=== PATIENT | female | born 1980 | race Hispanic/Latino ===

== ENCOUNTER 2022-07-07 10:17 | Inpatient (IN) | payer OTHER ==
--- OUTSIDE RECORDS SUMMARY | 2022-07-07 10:21 | XMS REPORT | Continuity of Care Document ---
:[address] [facility] t Address [address] [place] [address] Care Team Providers Name Role Phone Sharpless Primary Care Physician Unavailable Vinicio Barger DO Attending Clinician Emir Cordon Attending Clinician Rylie Bunn DO Attending Clinician [phone] Dionicio Cardoza RN Attending Clinician Unavailable Lab, Adc Fam Pob I Attending Clinician Unavailable VALENTINA CAMACHO Attending Clinician Unavailable HIEU RAMIRES Attending Clinician Unavailable EMIR CORDON Admitting Clinician Unavailable HIEU RAMIRES Admitting Clinician Unavailable Payers Payer Name Policy Type Policy Number Effective Date Expiration Date Carrie [employer] [id number] 2019 00:00:00 Problems Condition Condition Condition Status Onset Resolution Last Treating Co mments Source Name Details Category Date Date Treatment Clinician Date Cerebrovas Cerebrovas Disease Active M ethodi cular cular 2-25 st accident accident 00:00: Hospit a (CVA), (CVA), 00 l unspecifie unspecifie d d mechanism mechanism Hemianesth Hemianesth Disease Active [facility] Coagulopat Coagulopat Disease Active [facility] Cerebral C[facility]bral [facility] sinus sinus 00:00: Medical thrombosis thrombosis 00 Ce nter PTSD PTSD Disease Active [facility] (post-trau (post-trau 7-18 [facility]adis kes matic matic 00:00: Medical stress stress 00 Center disorder) disorder) Migraine Migraine Disease [facility] aura aura [facility] Center Allergies, Adverse Reactions, Alerts Allergy Allergy Status Severity Reaction(s) Onset Inactive Treating Comm ents Source Name Type Date Date Clinician Penicill Propensi Active GI Method i in G ty to Intolerance 12-02 st adverse 00:00: Hospita reaction 00 l s to drug Ciprofib Propensi Active GI Method i rate ty to Intolerance 12-02 st adverse 00:00: Hospita reaction 00 l s to drug Latex Propensi Active Rash Methodi ty to 729 st adverse 00:00: Hospita reaction 00 l s to drug Avocado Propensi Active Anaphylaxis [facility] (L[facility] ty to 7[facility]18 [facility] [place]) adverse 00:00: Medical reaction 00 [place] Ciproflo Propensi Active Nausea And [facility] xacin ty to Vomiting 7-18 [facility] adverse 00:00: Medical reaction 00 Center s Latex, Propensi Active Hives [facility] Natural ty to 7-18 [facility] Rubber adverse 00:00: Medical reaction 00 [place] Penicill Propensi Active Nausea And [facility] ins ty to Vomiting 7-18 [facility] adverse 00:00: Medical reaction 00 [place] NO KNOWN Drug Active [facility]ERGIE Class [facility] Social History Social Habit Start Date Stop Date Quantity Comments Source Alcohol intake 2016-12-02 2016-12-02 Current [facility] 00:[facility]:00 00:00:00 non-drinker of Hospital alcohol (finding) Cigarette 2016-11-21 2016-11-[address] [facility] pack-years 00:00:00 00:00:00 [facility] Cigarettes smoked 2016-11-21 2016-11-[address] [facility] current (pack per 00:00:00 00:00:00 Medical Center day) - Reported History of tobacco 2011-11-22 [facility] use [facility]00 [facility] Sex Assigned At [birth year] [facility] 00:[facility]00 [facility]:00 Hospital Smoking Status Start Date Stop Date Source Never smoked tobacco [facility] Former smoker 2016-11-21 00:00:00 2016-11-21 00:00:00 [facility] Medications This patient has no known medications. Vital Signs Vital Name Observation Time Observation Value Comments Source Systolic blood 2022-07-03 13:27:53 107 mm[Hg] [facility] pressure Diastolic blood 2022-07-03 13:27:53 69 mm[Hg] [facility] pressure Heart rate 2022-07-03 13:27:53 66 /min [facility] Body temperature 2022-07-03 13:27:53 36.67 Josefa [facility] Respiratory rate 2022-07-03 13:27:53 18 /min [facility] Oxygen saturation in 2022-07-03 13:27:53 100 /min [facility] Arterial blood by Pulse oximetry Body height 2022-07-02 03:55:[address] [facility] Body weight 2022-07-02 03:55:[address] [facility] BMI 2022-07-02 03:55:00 21.43 kg/m2 [facility] Procedures Procedure Date / Time Performing Clinician Source Performed BASIC METABOLIC PANEL 2022-07-03 10:38:00 [facility] PROTHROMBIN TIME WITH INR 2022-07-03 10:38:00 [facility] ESTIMATED GFR 2022-07-03 10:38:00 [facility] MRI STROKE BRAIN WO 2022-07-02 11:30:00 [facility] Tavia Armstrong [facility] CONTRAST Zoe [id number] TOTAL 2022-07-02 10:29:[facility] Zoe TROPONIN T 2022-07-02 10:29:00 [facility] HEMOGLOB[facility] A1C 2022-07-02 10:29:00 [facility] LIPID PANEL 2022-07-02 10:29:00 [facility] Zoe HOMOCYSTINE, PLASMA 2022-07-02 10:29:00 [facility] Zoe FOLATE LEVEL 2022-07-02 10:29:00 [facility] Zoe VITAMIN B12 LEVEL 2022-07-02 10:29:00 [facility] Zoe THYROID STIMULATING 2022-07-02 10:29:00 [facility] HORMONE Zoe T4, FREE 2022-07-02 10:29:00 [facility] Zoe SEDIMENTATION RATE 2022-07-02 10:29:00 [facility] Zoe C-REACTIVE PROTEIN 2022-07-02 10:29:00 [facility] Zoe HIV 1/2 ANTIGEN/ANTIBODY, 2022-07-02 10:29:00 [facility] FOURTH GENERATION, WITH Zoe REFLEXES SYPHILIS TREPONEMA SCREEN 2022-07-02 10:29:00 [facility] WITH RPR CONFIRMATION Zoe (REVERSE ALGORITHM) URINE CULTURE 2022-07-02 07:15:[address] [facility] URINE DRUGS OF ABUSE 2022-07-02 07:15:00 [facility] SCREEN Zoe URINALYSIS SCREEN AND 2022-07-02 07:15:00 [facility] MICROSCOPY, WITH REFLEX Zoe TO CULTURE TROPONIN T 2022-07-02 06:23:00 [facility] Kaelyn COVID-19 QUALITATIVE 2022-07-02 04:35:00 [facility] ANGIOGRAM NECK W WO 2022-07-02 04:04:28 Vinicio Barger [facility] CONTRAST CT ANGIOGRAM HEAD W WO 2022-07-02 04:04:14 Vinicio Barger [facility] CONTRAST ECG 12-LEAD 2022-07-02 03:56:24 Vinicio Barger spital POC GLUCOSE 2022-07-02 03:54:00 [facility] WITH PLATELET AND 2022-07-02 03:46:00 Vinicio Barger [facility] DIFFERENTIAL PARTIAL THROMBOPLASTIN 2022-07-02 03:46:00 Vinicio Barger [facility] TIME (PTT) PROTHROMBIN TIME WITH INR 2022-07-02 03:46:00 Vinicio Barger [facility] COMPREHENSIVE METABOLIC 2022-07-02 03:46:00 Vinicio Barger [facility] PANEL TROPONIN T 2022-07-02 03:46:00 [facility] HCG QUALITATIVE, SERUM 2022-07-02 03:46:00 Vinicio Barger [facility] SCREEN ESTIMATED GFR 2022-07-02 03:46[facility]00 [facility]OKE BRAIN WO 2022-07-02 03:44:28 Vinicio Barger [facility] CONTRAST ECG ED PRELIMINARY 2022-07-02 03:37:37 Vinicio Barger [facility] INTERPRETATION Plan of Care Planned Activity Planned Date Details Comments Source Future Scheduled 2022-07-06 COVID-19 VACCINE [facility] Test 08:22:30 (#1) [code = COVID-19 VACCINE (#1)] Future Scheduled 2022-07-06 Hepatitis C [facility] Test 08:22:30 screening (procedure) [code = 821828973] Future Scheduled 2022-07-06 Screening for [facility] Test 08:22:30 malignant neoplasm of cervix (procedure) [code = 216192781] Future Scheduled 2022-07-06 BREAST CANCER [facility] Test 08:22:30 SCREENING [code = BREAST CANCER SCREENING] Future Scheduled 2022-07-[address] [facility] Test 08:22:30 [code = INFLUENZA VACCINE] Encounters Start End Encounter Admission Attending Care Care Encounter Source Date/Time Date/Time Type Type Clinicians Facility Department ID 2022-07-01 2022-07-03 [facility] Vinicio Barger [id number] Methodi 21:36:00 11:54:00 Encounter Emir Cordon Tamir [id number] Rylie Bunn 3.430.2.7 Hospita .[id number] l .8 2022-07-01 2022-07-03 Inpatient JOEY [facility] [id number] [place] 00:00:00 00:00:[address] [facility] 2022-07-01 2022-07-01 Travel 1.2.840.1 [id number] Methodi 00:00:00 00:00:[address] 3.430.2.7 0.2.7.3.698 Ho spita .3.730277 084.8 l .8 2019-10-26 2019-10-26 Telephone GILDA Cardoza [id number] [id number] 2025 00:00:00 00:00:00 Dionicio MOSQUERA 350.1.13.10 [facility] 4.2.7.2.686 [id number] 2019-10-24 2019-10-24 Laboratory Lab, [facility] [id number] 09:03:27 09:23:27 Only Fam Pob I Health 350.1.13.10 [place] 4.2.7.2.686 Professio [id number] [address]al [address] 2019-10-24 2019-10-24 Outpatient Megan CAAMCHO [facility] [id number] [facility] 08:40:00 08:40:00 VALENTINA [facility] Results Test Description Test Time Test Comments Results Result Comments Source ECG 12 lead 2022-07-02 20:10:46 Test Item Value Reference Range Interpretation Comme nts Ventricular rate (test code = 253) 90 Atrial rate (test code = 255) 90 ME interval (test code = 266) 134 QRSD interval (test code = 260) 68 QT interval (test code = 264) 348 QTC interval (test code = 265) 425 P axis 1 (test code = 267) 23 QRS axis 1 (test code = 268) 12 T wave axis (test code = 270) 23 EKG impression (test code = 273) Normal sinus rhythm-Normal ECG-No previous ECGs available- [facility] [id number] 08:39:00 Test Item Value Reference Range Interpretation Comments Urine culture (test SEE COMMENT Bacteriu darío screen code = 7000375) negative. [facility] [id number] 03:59:00 Test Item Value Reference Range Interpretation Comments POC glucose (test 99 mg/dL 65-99 Field Representative/Health Education N romelia: code = 95420-9) Jamal Schneider MiniDevice ID: [id number] [facility] [Presence] in Respiratory specimen by LORRAINE with probe [id number] 01:30:54 Test Item Value Reference Range Interpretation Comments SARS-CoV-2 (COVID-19) RNA Not detected [Presence] in Respiratory specimen by LORRAINE with probe detection (test code = 54627-3) Whether patient is employed in a Unknown healthcare setting (test code = 02090-1) Whether the patient has symptoms Unknown related to condition of interest (test code = 34397-3) Whether the patient was Unknown hospitalized for condition of interest (test code = 34346-8) Whether the patient was admitted Unknown to intensive care unit (ICU) for condition of interest (test code = 45423-6) Whether patient resides in a Unknown congregate care setting (test code = 49875-1) status (test code = Unknown 74479-7) Date and time of symptom onset Unknown (test code = 97247-7) [facility] LEIDEN PCR (THROMBOTIC RISK)2016-11-28 17:27:00 Test Item Value Reference Range Interpretation Comments FACTOR V LEIDEN Negative for the R506Q (ALBARO) (test code = (Factor V Leiden) 718) mutation [id number] Charla Souza MD (BEWILBER) (test code = (electronic signature) 3885) This test is a genotyping assay which evaluates the DNA sequence corresponding to Codon 506 of the Factor V Gene. A region of the Factor V Gene is amplified by polymerase chain reaction followed by fluorescent monitoring of a specific pair of hybridized probes. Since genetic variation and other factors can affect the accuracy of direct mutation testing, these results should be interpreted in light ofclinical and familial data.This test was developed and [facility], Section of Molecular Pathology. It has not been cleared or approved by the U.S. Food and Drug Administration (FDA), since FDA approval is not requ ired for clinical use of the test. Validation was done as required by the Clinical Laboratory Improvement Amendments of 1988.PROTHROMBIN GENE MUTATION 2016-11-28 17:24:00 Test Item Value Reference Range Interpretation Comments PROTHROMBIN/FACTOR Negative for the [id number] II (BEAKER) (test (Prothrombin/Factor II) code = 2163) mutation. [id number] Charla Souza MD 1(BEWILBER) (test code (electronic signature) = 2464) This test is a genotyping assay which evaluates the DNA sequence at position 03435 of the prothrombin (Factor II) gene. A region of the prothrombin (Factor II) gene is amplified by polymerase chain reaction followed by fluorescent monitoring of a specific pair of hybridized probes. Since genetic variation and other factors can affect the accuracy of direct mutation testing, these results should be interpreted in light of clinical and familial data.This test was developed and its performance characteristics determined by the [facility] Pathology Department, Section of Molecular Pathology. It has not been cleared or approved by the U.S. Food and Drug Administration (FDA), since FDA approval is not required for clinical use of the test. Validation was done as required by the Clinical Laboratory Improvement Amendments of 1988.DILUTE MICHELLE VIPER VENOM (DRVV)2016-11-27 18:14:00 Test Item Value Reference Range Interpretation Comments PROTIME (BEAKER) (test 14.2 seconds 11.7-14.7 code = 759) INR (BEAKER) (test code = 1.1 <=5.9 370) PARTIAL THROMBOPLASTIN 108.1 seconds 22.5-36.0 H TIME (BEAKER) (test code = 760) DRVV INTERPRETATION Normal DRVV Results (BEAKER) (test code = 2406) [id number] Charla Souza, ([facility]) (test code = (electronic 4432) signature) DRVV SCREEN RATIO 0.82 <1.20 (BEAKER) (test code = 2707) Effective 09/09/2013: Test Method ChangeDRVV Screen Ratio, DRVV 1/1 Screen Ratio, DRVV Confirm Ratio,DRVV Normalized Ratio Reference Range: <1.2Protime Reference Range ChangeNew: 11.7-14.7 Previous: 9.8-12.0PTT Reference Range ChangeNew: 22.5-36.0 Previous: 25.8-34.5HEXAGONAL [id number] 14:23:00 Test Item Value Reference Range Interpretation Comments HEXAGONAL PHOSPHOLIPID (BEAKER) Positive (test code = 1790) CARDIOLIPIN ANTIBODIES, IGG AND [id number] 02:07:00 Test Item Value Reference Range Interpretation Comments ANTICARDIOLIPIN IGG ANTIBODY (BEAKER) < GPL (test code = 712) ANTICARDIOLIPIN IGM ANTIBODY (BEAKER) 0.2 MPL (test code = 713) Anticardiolipin IgG Result Interpretation:NEG: <20 GPL; U/mlPOS: >/=20 GPL; U/mlAnticardiolipin IgM Result Interpretation:NEG: <20 MPL; U/mlPOS: >/=20 MPL; U/mlCBC W/PLT COUNT & AUTO [id number] 09:01:00 Test Item Value Reference Range Interpretation Comments WHITE BLOOD CELL COUNT (BEAKER) 11.4 K/ L 4.0-10.0 H (test code = 775) RED BLOOD CELL COUNT (BEAKER) 3.56 M/ L 4.00-5.00 L (test code = 761) HEMOGLOBIN (BEAKER) (test code = 11.2 GM/DL 12.0-15.0 L 410) HEMATOCRIT (BEAKER) (test code = 33.8 % 36.0-45.0 L 411) MEAN CORPUSCULAR VOLUME (BEAKER) 95.0 fL 82.0-99.0 (test code = 753) MEAN CORPUSCULAR HEMOGLOBIN 31.6 pg 27.0-33.0 (BEAKER) (test code = 751) MEAN CORPUSCULAR HEMOGLOBIN CONC 33.2 GM/DL 32.0-36.0 (BEAKER) (test code = 752) RED CELL DISTRIBUTION WIDTH 13.0 % 10.3-14.2 (BEAKER) (test code = 412) PLATELET COUNT (BEAKER) (test 230 K/CU MM 150-430 code = 756) MEAN PLATELET VOLUME (BEAKER) 8.6 fL 6.5-10.5 (test code = 754) NUCLEATED RED BLOOD CELLS 0 /100 WBC 0-0 (BEAKER) (test code = 413) NEUTROPHILS RELATIVE PERCENT 48 % (BEAKER) (test code = 429) LYMPHOCYTES RELATIVE PERCENT 45 % (BEAKER) (test code = 430) MONOCYTES RELATIVE PERCENT 5 % (BEAKER) (test code = 431) EOSINOPHILS RELATIVE PERCENT 1 % (BEAKER) (test code = 432) BASOPHILS RELATIVE PERCENT 1 % (BEAKER) (test code = 437) NEUTROPHILS ABSOLUTE COUNT 5.45 K/ L 1.80-8.00 (BEAKER) (test code = 670) LYMPHOCYTES ABSOLUTE COUNT 5.12 K/ L 1.48-4.50 H (BEAKER) (test code = 414) MONOCYTES ABSOLUTE COUNT (BEAKER) 0.61 K/ L 0.00-1.30 (test code = 415) EOSINOPHILS ABSOLUTE COUNT 0.12 K/ L 0.00-0.50 (BEAKER) (test code = 416) BASOPHILS ABSOLUTE COUNT (BEAKER) 0.11 K/ L 0.00-0.20 (test code = 417) 0.00(MANUAL DIFFERENTIAL)2016-11-23 09:01:00 Test Item Value Reference Range Interpretation Comments TOTAL COUNTED (BEAKER) (test code = 1351) WBC MORPHOLOGY (BEAKER) (test code = Normal 487) PLT MORPHOLOGY (BEAKER) (test code = Normal 486) RBC MORPHOLOGY (BEAKER) (test code = Normal 762) BASIC METABOLIC [id number] 06:04:00 Test Item Value Reference Range Interpretation Comments SODIUM (BEAKER) 140 meq/L 136-145 (test code = 381) POTASSIUM (BEAKER) 3.7 meq/L 3.5-5.1 (test code = 379) CHLORIDE (BEAKER) 108 meq/L 98-107 H (test code = 382) CO2 (BEAKER) (test 26 meq/L 22-29 code = 355) BLOOD UREA NITROGEN 9 mg/dL 7-21 (BEAKER) (test code = 354) CREATININE (BEAKER) 0.64 mg/dL 0.57-1.25 (test code = 358) GLUCOSE RANDOM 92 mg/dL 70-105 (BEAKER) (test code = 652) CALCIUM (BEAKER) 7.6 mg/dL 8.4-10.2 L (test code = 697) EGFR (BEAKER) (test 104 mL/min/1.73 ESTIM ATED GFR IS code = 1092) sq m NOT ACCURATE CREATININE CLEARANCE IN PREDICTING GLOMERULAR FILTRATION RATE . ESTIMATED GFR I S NOT APPLICABLE FOR DIALYSIS PATIEN TS. PROTHROMBIN [id number] 05:57:00 Test Item Value Reference Range Interpretation Comments PROTIME (BEAKER) (test code = 15.4 seconds 11.7-14.7 H 759) INR (BEAKER) (test code = 370) 1.2 <=5.9 RECOMMENDED COUMADIN/WARFARIN INR THERAPY RANGESSTANDARD DOSE: 2.0 - 3.0 Includes: PROPHYLAXIS for venous thrombosis, systemic embolization; TREATMENT for venous thrombosis and/or pulmonary embolus.HIGH RISK: Target INR is 2.5-3.5 for patients with mechanical heart valves.While on warfarin.PT/[id number] 23:25:00 Test Item Value Reference Range Interpretation Comments PROTIME (BEAKER) (test code = 15.0 seconds 11.7-14.7 H 759) INR (BEAKER) (test code = 370) 1.2 <=5.9 PARTIAL THROMBOPLASTIN TIME 68.7 seconds 22.5-36.0 H (BEAKER) (test code = 760) RECOMMENDED COUMADIN/WARFARIN INR THERAPY RANGESSTANDARD DOSE: 2.0 - 3.0 Includes: PROPHYLAXIS for venous thrombosis, systemic embolization; TREATMENT for venous thrombosis and/or pulmonary embolus.HIGH RISK: Target INR is 2.5-3.5 for patients with mechanical heart valves.PROTHROMBIN [id number] 22:37:00 Test Item Value Reference Range Interpretation Comments PROTIME (BEAKER) (test code = 15.0 seconds 11.7-14.7 H 759) INR (BEAKER) (test code = 370) 1.2 <=5.9 RECOMMENDED COUMADIN/WARFARIN INR THERAPY RANGESSTANDARD DOSE: 2.0 - 3.0 Includes: PROPHYLAXIS for venous thrombosis, systemic embolization; TREATMENT for venous thrombosis and/or pulmonary embolus.HIGH RISK: Target INR is 2.5-3.5 for patients with mechanical heart valves.PT/[id number] 17:25:00 Test Item Value Reference Range Interpretation Comments PROTIME (BEAKER) (test code = 15.1 seconds 11.7-14.7 H 759) INR (BEAKER) (test code = 370) 1.2 <=5.9 PARTIAL THROMBOPLASTIN TIME 75.8 seconds 22.5-36.0 H (BEAKER) (test code = 760) RECOMMENDED COUMADIN/WARFARIN INR THERAPY RANGESSTANDARD DOSE: 2.0 - 3.0 Includes: PROPHYLAXIS for venous thrombosis, systemic embolization; TREATMENT for venous thrombosis and/or pulmonary embolus.HIGH RISK: Target INR is 2.5-3.5 for patients with mechanical heart valves.PROTHROMBIN [id number] 12:27:00 Test Item Value Reference Range Interpretation Comments PROTIME (BEAKER) (test code = 15.2 seconds 11.7-14.7 H 759) INR (BEAKER) (test code = 370) 1.2 <=5.9 RECOMMENDED COUMADIN/WARFARIN INR THERAPY RANGESSTANDARD DOSE: 2.0 - 3.0 Includes: PROPHYLAXIS for venous thrombosis, systemic embolization; TREATMENT for venous thrombosis and/or pulmonary embolus.HIGH RISK: Target INR is 2.5-3.5 for patients with mechanical heart valves.PROTEIN C [id number] 11:52:00 Test Item Value Reference Range Interpretation Comments PROTEIN C ACTIVITY (BEAKER) (test code 87.0 % 70.0-130.0 = 582) Effective 09/09/2013: Reference Range Change-Adult onlyNew: 70.0-130.0 Previous: [id number] 10:53:00 Test Item Value Reference Range Interpretation Comments PARTIAL THROMBOPLASTIN TIME 97.8 seconds 22.5-36.0 H (BEAKER) (test code = 760) [id number] 10:51:00 Test Item Value Reference Range Interpretation Comments HOMOCYSTEINE (BEAKER) (test code = 4.9 umol/L 5.1-15.4 L 642) CBC W/PLT COUNT & AUTO [id number] 08:22:00 Test Item Value Reference Range Interpretation Comments WHITE BLOOD CELL COUNT (BEAKER) 13.6 K/ L 4.0-10.0 H (test code = 775) RED BLOOD CELL COUNT (BEAKER) 4.12 M/ L 4.00-5.00 (test code = 761) HEMOGLOBIN (BEAKER) (test code = 12.8 GM/DL 12.0-15.0 410) HEMATOCRIT (BEAKER) (test code = 38.9 % 36.0-45.0 411) MEAN CORPUSCULAR VOLUME (BEAKER) 94.4 fL 82.0-99.0 (test code = 753) MEAN CORPUSCULAR HEMOGLOBIN 31.1 pg 27.0-33.0 (BEAKER) (test code = 751) MEAN CORPUSCULAR HEMOGLOBIN CONC 33.0 GM/DL 32.0-36.0 (BEAKER) (test code = 752) RED CELL DISTRIBUTION WIDTH 11.3 % 10.3-14.2 (BEAKER) (test code = 412) PLATELET COUNT (BEAKER) (test 291 K/CU MM 150-430 code = 756) MEAN PLATELET VOLUME (BEAKER) 8.2 fL 6.5-10.5 (test code = 754) NUCLEATED RED BLOOD CELLS 0 /100 WBC 0-0 (BEAKER) (test code = 413) NEUTROPHILS RELATIVE PERCENT 85 % (BEAKER) (test code = 429) LYMPHOCYTES RELATIVE PERCENT 11 % (BEAKER) (test code = 430) MONOCYTES RELATIVE PERCENT 4 % (BEAKER) (test code = 431) EOSINOPHILS RELATIVE PERCENT 0 % (BEAKER) (test code = 432) BASOPHILS RELATIVE PERCENT 0 % (BEAKER) (test code = 437) NEUTROPHILS ABSOLUTE COUNT 11.50 K/ L 1.80-8.00 H (BEAKER) (test code = 670) LYMPHOCYTES ABSOLUTE COUNT 1.52 K/ L 1.48-4.50 (BEAKER) (test code = 414) MONOCYTES ABSOLUTE COUNT (BEAKER) 0.55 K/ L 0.00-1.30 (test code = 415) EOSINOPHILS ABSOLUTE COUNT 0.02 K/ L 0.00-0.50 (BEAKER) (test code = 416) BASOPHILS ABSOLUTE COUNT (BEAKER) 0.02 K/ L 0.00-0.20 (test code = 417) 0.000.510.000.000.000.000.000.000.00(MANUAL DIFFERENTIAL)2016-11-22 08:22:00 Test Item Value Reference Range Interpretation Comments TOTAL COUNTED (BEAKER) (test code = 1351) WBC MORPHOLOGY (BEAKER) (test code = Normal 487) PLT MORPHOLOGY (BEAKER) (test code = Normal 486) RBC MORPHOLOGY (BEAKER) (test code = Normal 762) [id number] 04:34:00 Test Item Value Reference Range Interpretation Comments POTASSIUM (BEAKER) (test code = 4.1 meq/L 3.5-5.1 379) FastingCheck Serum Potassium level 2 hours after oral potassium replacement completed or 30 min after intravenous potassium replacement.[id number] 04:34:00 Test Item Value Reference Range Interpretation Comments MAGNESIUM (BEAKER) (test code = 1.9 mg/dL 1.6-2.6 627) FastingCheck Serum Potassium level 2 hours after oral potassium replacement completed or 30 min after intravenous potassium replacement.BASIC METABOLIC [id number] 04:34:00 Test Item Value Reference Range Interpretation Comments SODIUM (BEAKER) 134 meq/L 136-145 L (test code = 381) POTASSIUM (BEAKER) 4.1 meq/L 3.5-5.1 (test code = 379) CHLORIDE (BEAKER) 103 meq/L 98-107 (test code = 382) CO2 (BEAKER) (test 22 meq/L 22-29 code = 355) BLOOD UREA NITROGEN 8 mg/dL 7-21 (BEAKER) (test code = 354) CREATININE (BEAKER) 0.72 mg/dL 0.57-1.25 (test code = 358) GLUCOSE RANDOM 142 mg/dL 70-105 H (BEAKER) (test code = 652) CALCIUM (BEAKER) 8.2 mg/dL 8.4-10.2 L (test code = 697) EGFR (BEAKER) (test 91 mL/min/1.73 ESTIMA NICHELLE GFR IS code = 1092) sq m NOT ACCURATE CREATININE CLEARANCE IN PREDICTING GLOMERULAR FILTRATION RATE . ESTIMATED GFR I S NOT APPLICABLE FOR DIALYSIS PATIEN TS. FastingCheck Serum Potassium level 2 hours after oral potassium replacement completed or 30 min after intravenous potassium replacement.LIPID PANEL 2016-11-22 04:34:00 Test Item Value Reference Range Interpretation Comments TRIGLYCERIDES (BEAKER) (test code = 106 mg/dL 540) CHOLESTEROL (BEAKER) (test code = 179 mg/dL 631) HDL CHOLESTEROL (BEAKER) (test code 41 mg/dL = 976) LDL CHOLESTEROL CALCULATED (BEAKER) 117 mg/dL (test code = 633) Triglyceride Reference Range: Low Risk <150 Borderline 150-199 High Risk 200- 499 Very High Risk >=500Cholesterol Reference Range: Low Risk <200 Borderline 200-239 High Risk >240HDL Cholesterol Reference Range: Low Risk >=60 High Risk <40LDL Cholesterol Reference Range: Optimal <100 Near Optimal 100-129 Borderline 130-159 High 160-189 Very High >=190 FastingCheck Serum Potassium level 2 hours after oral potassium replacement completed or 30 min after intravenous potassium replacement.[id number] 04:22:00 Test Item Value Reference Range Interpretation Comments PARTIAL THROMBOPLASTIN TIME 61.5 seconds 22.5-36.0 H (BEAKER) (test code = 760) [id number] 22:54:00 Test Item Value Reference Range Interpretation Comments PARTIAL THROMBOPLASTIN TIME 37.5 seconds 22.5-36.0 H (BEAKER) (test code = 760) SCREEN, [id number] 16:30:00 Test Item Value Reference Range Interpretation Comments TEST URINE (AKER) (test Negative code = 583) TROPONIN [id number] 15:41:00 Test Item Value Reference Range Interpretation Comments TROPONIN I (BEAKER) (test code = 397) < ng/mL 0.00-0.03 Effective 03/24/2014: Reference Range ChangeNew: 0.00-0.03 Previous 0.00- 0.15Troponin I (TnI) levelsmust be interpreted in the context of the presenting symptoms and the clinical findings. Elevated TnI levels indicate myocardial damage, but are not specific for ischemic heart disease. Elevated TnI levels are seen in patients with other cardiac conditions (including myocarditis and congestive heart failure), and slight TnI elevations occur in patients with other conditions, including sepsis, renal failure, acidosis, acute neurological disease, and persistent tachyarrhythmia.BASIC METABOLIC [id number] 15:36:00 Test Item Value Reference Range Interpretation Comments SODIUM (BEAKER) 136 meq/L 136-145 (test code = 381) POTASSIUM (BEAKER) 3.9 meq/L 3.5-5.1 Specimen slightly (test code = 379) hemolyzed CHLORIDE (BEAKER) 101 meq/L 98-107 (test code = 382) CO2 (BEAKER) (test 28 meq/L 22-29 code = 355) BLOOD UREA NITROGEN 9 mg/dL 7-21 (BEAKER) (test code = 354) CREATININE (BEAKER) 0.75 mg/dL 0.57-1.25 Specimen slightly (test code = 358) hemolyzed GLUCOSE RANDOM 106 mg/dL 70-105 H (BEAKER) (test code = 652) CALCIUM (BEAKER) 9.2 mg/dL 8.4-10.2 (test code = 697) EGFR (BEAKER) (test 86 mL/min/1.73 ESTIMA NICHELLE GFR IS code = 1092) sq m NOT ACCURATE CREATININE CLEARANCE IN PREDICTING GLOMERULAR FILTRATION RATE . ESTIMATED GFR I S NOT APPLICABLE FOR DIALYSIS PATIEN TS. HEPATIC FUNCTION [id number] 15:36:00 Test Item Value Reference Range Interpretation Comments TOTAL PROTEIN (BEAKER) 7.2 gm/dL 6.0-8.3 Speci men slightly (test code = 770) hemolyzed ALBUMIN (BEAKER) (test 4.2 g/dL 3.5-5.0 Speci men slightly code = 1145) hemolyzed BILIRUBIN TOTAL 0.5 mg/dL 0.2-1.2 Specimen sli ghtly (BEAKER) (test code = hemoly zed 377) BILIRUBIN DIRECT 0.2 mg/dL 0.1-0.5 Specimen sl ightly (BEAKER) (test code = hemoly zed 706) ALKALINE PHOSPHATASE 70 U/L 40-150 (BEAKER) (test code = 346) AST (SGOT) (BEAKER) 21 U/L 5-34 Specimen slightly (test code = 353) hemolyzed ALT (SGPT) (BEAKER) 19 U/L 6-55 Specimen slightly (test code = 347) hemolyzed [id number] 15:25:00 Test Item Value Reference Range Interpretation Comments PARTIAL THROMBOPLASTIN TIME 56.4 seconds 22.5-36.0 H (BEAKER) (test code = 760) Prior to initiating heparinCBC W/PLT COUNT & AUTO [id number] 15:21:00 Test Item Value Reference Range Interpretation Comments WHITE BLOOD CELL COUNT (BEAKER) 8.2 K/ L 4.0-10.0 (test code = 775) RED BLOOD CELL COUNT (BEAKER) 4.52 M/ L 4.00-5.00 (test code = 761) HEMOGLOBIN (BEAKER) (test code = 14.2 GM/DL 12.0-15.0 410) HEMATOCRIT (BEAKER) (test code = 42.4 % 36.0-45.0 411) MEAN CORPUSCULAR VOLUME (BEAKER) 93.7 fL 82.0-99.0 (test code = 753) MEAN CORPUSCULAR HEMOGLOBIN 31.5 pg 27.0-33.0 (BEAKER) (test code = 751) MEAN CORPUSCULAR HEMOGLOBIN CONC 33.6 GM/DL 32.0-36.0 (BEAKER) (test code = 752) RED CELL DISTRIBUTION WIDTH 11.3 % 10.3-14.2 (BEAKER) (test code = 412) PLATELET COUNT (BEAKER) (test 319 K/CU MM 150-430 code = 756) MEAN PLATELET VOLUME (BEAKER) 8.4 fL 6.5-10.5 (test code = 754) NUCLEATED RED BLOOD CELLS 0 /100 WBC 0-0 (BEAKER) (test code = 413) NEUTROPHILS RELATIVE PERCENT 79 % (BEAKER) (test code = 429) LYMPHOCYTES RELATIVE PERCENT 18 % (BEAKER) (test code = 430) MONOCYTES RELATIVE PERCENT 2 % (BEAKER) (test code = 431) EOSINOPHILS RELATIVE PERCENT 1 % (BEAKER) (test code = 432) BASOPHILS RELATIVE PERCENT 1 % (BEAKER) (test code = 437) NEUTROPHILS ABSOLUTE COUNT 6.47 K/ L 1.80-8.00 (BEAKER) (test code = 670) LYMPHOCYTES ABSOLUTE COUNT 1.50 K/ L 1.48-4.50 (BEAKER) (test code = 414) MONOCYTES ABSOLUTE COUNT (BEAKER) 0.16 K/ L 0.00-1.30 (test code = 415) EOSINOPHILS ABSOLUTE COUNT 0.06 K/ L 0.00-0.50 (BEAKER) (test code = 416) BASOPHILS ABSOLUTE COUNT (BEAKER) 0.05 K/ L 0.00-0.20 (test code = 417) 0.00
[2022-07-07 10:46] LABS: Absolute Lymphocytes (CBC) 1.6 K/uL (0.7-4.9); Hematocrit 39.7 % (36.0-45.0); MCV 82.4 fL (80-100); MPV 8.5 fL (7.6-11.3); RBC Red Blood Cell Count 4.82 M/uL (3.86-4.86)
[2022-07-07 10:54] LABS: Protime INR 1.68
[2022-07-07 11:05] LABS: BUN Blood Urea Nitrogen 15 mg/dL (7-18); Bicarbonate 24 mmol/L (21-32); Glomerular Filtration Rate 76 ml/min (=/>90); Glucose Level 113 mg/dL (74-106); Magnesium 2.2 mg/dL (1.6-2.4); Potassium 4.2 mmol/L (3.5-5.1); Sodium Level 135 mmol/L (136-145); Troponin High Sensitivity < 3.0 pg/mL (<58.9)
--- NOTE | 2022-07-07 11:07 | RAD REPORT ---
EXAM DESCRIPTION: RAD - Chest Single View - 07/07/2022 10:57 am CLINICAL HISTORY: SOB COMPARISON: Chest Single View dated 11/21/2016; CHEST SINGLE VIEW dated 12/06/2011; CHEST SINGLE VIEW d ated 06/07/2009; ABDOMEN ACUTE SERIES dated 01/09/2009 FINDINGS: Lines: None. Lungs: No evidence of edema or pneumonia. Pleural: No significant pleural effusions or pneumothorax. Cardiac: The heart size is within normal limits. Mediastinum: Within normal limits. Bones: No acute fractures. Other: None IMPRESSION: No acute cardiopulmonary disease.
--- NOTE | 2022-07-07 11:16 | RAD REPORT ---
EXAM DESCRIPTION: CT - Ct Stroke Brain Wo Cont - 07/07/2022 11:11 am CLINICAL HISTORY: STROKE ALERT COMPARISON: Head angio dated 11/21/2016; Head Brain Wo Cont dated 11/21/2016 TECHNIQUE: All CT scans are performed using dose optimization technique as appropriate and may inclu de automated exposure control or mA/KV adjustment according to patient size. FINDINGS: No intracranial hemorrhage, hydrocephalus or extra-axial fluid collection.No areas of brai n edema or evidence of midline shift. The paranasal sinuses and mastoids are clear. The calvarium is intact. IMPRESSION: No acute intracranial abnormality.
--- NOTE | 2022-07-07 11:27 | RAD REPORT ---
EXAM DESCRIPTION: CT - Neck Angio - 07/07/2022 11:20 am CLINICAL HISTORY: left Upper and lower ext weakness/ numbnes COMPARISON: No comparisons TECHNIQUE: CT angiography of the neck vessels was performed with maximum intensity reformatted image s. All CT scans are performed using dose optimization technique as appropriate and may include automated exposure control or mA/KV adjustment according to patient size. FINDINGS: A left aortic arch is identified with normal three vessel configuration of the great vesse ls. No significant flow abnormality is seen of the common carotid bilaterally. No significant stenosis is identified involving the cervical segments of both internal carotid arteri es. Right dominant vertebral artery. IMPRESSION: No significant flow abnormality of the neck vessels is identified.
[2022-07-07] MEDS ORDERED: TENECTEPLASE 50 MG/10 ML VIAL IV ONE (11:28)
--- NOTE | 2022-07-07 11:28 | RAD REPORT ---
EXAM DESCRIPTION: CT - Head angio - 07/07/2022 11:20 am CLINICAL HISTORY: left sided deficits COMPARISON: Ct Stroke Brain Wo Cont dated 07/07/2022; Head angio dated 11/21/2016; Neck Angio dated 07/07 TECHNIQUE: CT angiography of the head was performed with maximum intensity reformatted images. All CT scans are performed using dose optimization technique as appropriate and may include automated exposure control or mA/KV adjustment according to patient size. FINDINGS: Anterior circulation: No aneurysm or large vessel occlusion. No hemodynamically significant stenosis. No arteriovenous malf ormation identified. Posterior circulation: No aneurysm or large vessel occlusion. No hemodynamically significant stenosis. No arteriovenous malf ormation identified. type bilateral posterior cerebral arteries. IMPRESSION: No significant flow abnormality is detected.
[2022-07-07] MEDS ORDERED: LORazepam 2 MG/ML VIAL ONE (11:58)
--- NOTE | 2022-07-07 12:01 | ER ---
Nurse's Notes [facility] Name: Estefania Tan Age: 41 yrs Sex: Female : 1980 Arrival Date: 07/07/2022 Time: 10:18 Bed 16 Private MD: Diagnosis: CVA;Chest pain, unspecified;Shortness of breath Presentation: 07/07 10:33 Chief complaint: Patient states: SOB, headache and chest pressure that started an hour kr3 ago. Coronavirus screen: Vaccine status: Patient reports being unvaccinated. Ebola Screen: Patient denies travel to an Ebola-affected area in the 21 days before illness onset. Initial Sepsis Screen: Does the patient meet any 2 criteria? No. Patient's initial sepsis screen is negative. Does the patient have a suspected source of infection? No. Patient's initial sepsis screen is negative. Risk Assessment: Do you want to hurt yourself or someone else? Patient reports no desire to harm self or others. Onset of symptoms was July 07, 2022. 10:33 Method Of Arrival: Ambulatory kr3 10:33 Acuity: CARYN 3 kr3 16:59 Pre-hospital glucose is not applicable to this patient. kr3 07/08 07:00 An acute neurological deficit is present. db Triage Assessment: 07/07 10:42 General: Appears distressed, uncomfortable, Behavior is cooperative, crying. Pain:. kr3 EENT: No signs and/or symptoms were reported regarding the EENT system. Neuro: Level of Consciousness is awake, alert, obeys commands, confused, Oriented to person, place, time, situation. Cardiovascular: Patient's skin is warm and dry. Respiratory: Airway is patent Respiratory effort is even, labored, Respiratory pattern is regular, symmetrical. GI: No signs and/or symptoms were reported involving the gastrointestinal system. : No signs and/or symptoms were reported regarding the genitourinary system. Derm: No signs and/or symptoms reported regarding the dermatologic system. Musculoskeletal: No signs and/or symptoms reported regarding the musculoskeletal system. 16:57 The onset of the patients symptoms was July 07, 2022 at 09:10. kr3 19:50 Respiratory: the patient has mild shortness of breath. ha1 07/08 07:15 Respiratory: Reports. db Stroke Activation: Symptom onset < 3 hours Physician: Stroke Attending; Name: ; Notified At: ; Arrived At: Physician: Chief Stroke Resident; Name: ; Notified At: ; Arrived At: Physician: Stroke Resident; Name: ; Notified At: ; Arrived At: Physician: ED Attending; Name: ; Notified At: ; Arrived At: Physician: ED Resident; Name: ; Notified At: ; Arrived At: Historical: - Allergies: 07/07 10:41 Ciprofloxacin; kr3 10:41 PENICILLINS; kr3 - PMHx: 10:41 Migraines; PTSD; Cerebrovascular accident; kr3 - Immunization history:: Adult Immunizations not up to date. - Social history:: Smoking status: Reported history of juuling and/or vaping. Screenin:15 [facility] ED Fall Risk Assessment (Adult) History of falling in the last 3 months, kr3 including since admission No falls in past 3 months (0 pts) Confusion or Disorientation No (0 pts) Intoxicated or Sedated No (0 pts) Impaired Gait No (0 pts) Mobility Assist Device Used No (0 pt) Altered Elimination No (0 pt) Score/Fall Risk Level 0 - 2 = Low Risk. Abuse screen: Denies threats or abuse. Nutritional screening: No deficits noted. Tuberculosis screening: No symptoms or risk factors identified. Assessment: 10:50 Respiratory: Airway is patent Respiratory effort is even, labored, Respiratory pattern kr3 is regular, symmetrical. 11:01 VAN Scoring: Arm Drift: Minor drift Visual Disturbance: No visual disturbance noted. kr3 Aphasia: No aphasia noted. Neglect: No neglect noted. 11:28 TNKase (Tenecteplase) Screening: Indications: Definite evidence of stroke, ischemic, kr3 embolic, or hypertensive: Yes. Treatment will start within 4.5 hours onset of symptoms: Yes. No evidence of intracranial hemorrhage or CT of head and no evidence of peripheral hemorrhage or recent CVA: No. Consent for thrombolytic therapy: Yes. 11:30 Reassessment: Patient and/or family updated on plan of care and expected duration. Pain kr3 level reassessed. patient lying supine on stretcher coming back from CT, eyes open with labored breathing, not responding to questions, Dr. Tee meet us in the nguyen and continued speaking to patient without response. Once in room the patient started to communicate with Dr. Tee. 12:30 Reassessment: Patient and/or family updated on plan of care and expected duration. Pain kr3 level reassessed. Patient is alert, oriented x 3, equal unlabored respirations, skin warm/dry/pink. 13:28 Reassessment: Patient and/or family updated on plan of care and expected duration. Pain kr3 level reassessed. Patient is alert, oriented x 3, equal unlabored respirations, skin warm/dry/pink. 13:31 Cardiovascular: Rhythm is sinus rhythm. kr3 14:30 Reassessment: Patient and/or family updated on plan of care and expected duration. Pain kr3 level reassessed. Patient is alert, oriented x 3, equal unlabored respirations, skin warm/dry/pink. 15:30 Reassessment: Patient and/or family updated on plan of care and expected duration. Pain kr3 level reassessed. Patient is alert, oriented x 3, equal unlabored respirations, skin warm/dry/pink. 16:23 Reassessment: Patient and/or family updated on plan of care and expected duration. Pain kr3 level reassessed. Patient is alert, oriented x 3, equal unlabored respirations, skin warm/dry/pink. 03 07:15 Respiratory: Breath sounds are clear. db Vital Signs: 07/07 10:33 BP 129 / 74; Pulse 91; Resp 18; Temp 96.5(A); Pulse Ox 100% on R/A; Weight 63.5 kg; kr3 Height 5 ft. 3 in. (160.02 cm); 11:30 BP 156 / 82; Pulse 88; Resp 18; Pulse Ox 100% on R/A; kr3 12:30 BP 124 / 81; Pulse 71; Resp 18; Pulse Ox 100% on R/A; kr3 13:30 BP 117 / 83; Pulse 69; Resp 18; Pulse Ox 100% on 2 lpm NC; kr3 14:30 BP 118 / 73; Pulse 81; Resp 18; Pulse Ox 100% on NC; kr3 15:30 BP 101 / 66; Pulse 64; Resp 18; Pulse Ox 99% on R/A; kr3 10:33 Body Mass Index 24.80 (63.50 kg, 160.02 cm) kr3 NIH Stroke Scale Scores: 11:01 NIHSS Score: 4 kr3 11:10 NIHSS Score: 4 ms3 ED Course: 10:18 Patient arrived in ED. am2 10:19 [facility] jh7 10:19 Ian Tee DO is Attending Physician. jh7 10:29 Jeanette Orona, RN is Primary Nurse. kr3 10:41 Triage completed. kr3 10:42 Inserted saline lock: 20 gauge in left antecubital area, using aseptic technique. Blood ah1 collected. 10:42 Basic Metabolic Panel Sent. ah1 10:42 CBC with Diff Sent. ah1 10:42 D-Dimer Sent. ah1 10:42 Magnesium Sent. ah1 10:42 PT-INR Sent. ah1 10:42 Troponin HS Sent. ah1 10:43 Arm band placed on right wrist. Patient placed in an exam room, on a stretcher. kr3 10:48 Bed in low position. Call light in reach. Side rails up X 1. kr3 11:59 Andre Burns MD is Hospitalizing Provider. ms3 11:59 Bishop Burns MD is Hospitalizing Provider. ms3 12:00 Monty Larkin MD is Hospitalizing Provider. ms3 07/08 06:46 Primary Nurse role handed off by Jeanette Orona, CHRISTIANO eb 07:00 No provider procedures requiring assistance completed. Patient admitted, IV remains in db place. Administered Medications: 07/07 11:31 Drug: TNK FOR STROKE - Tenecteplase 0.25 mg/kg {Co-Signature: ko1 (Denisha Brody kr3 RN).} Route: IV; Rate: per protocol; Site: left antecubital; 11:57 Drug: Ativan (LORazepam) 0.5 mg Route: IVP; Site: left antecubital; kr3 Medication: 19:50 VIS not applicable for this client. ha1 Point of Care Testing: Blood Glucose: 11:08 Blood Glucose: 89 mg/dL; kr3 Ranges: Outcome: 12:00 Decision to Hospitalize by Provider. ms3 07/08 07:00 Admitted to ER Hold. [facility]. db Condition: stable Instructed on the need for admit. 16:05 Patient left the ED. db NIH Stroke Scale - NIH Stroke Score Date: 07/07/2022 Time: 11:01 Total Score = 4 1a. Level of Consciousness (LOC) - 0(Alert) 1b. Level of Consciousness (LOC) (Month \T\ Age) - 0(Both) 1c. LOC Commands (Open \T\ Closes Eyes/Supervisor Fur Dressing) - 0(Both) 2. Best Gaze (Lateral Gaze Paresis) - 0(Normal) 3. Visual Field Loss - 0(No visual loss) 4. Facial Palsy - 1(Minor Paralysis) 5a. Left Arm: Motor (10-second hold) - 1(Drift) 5b. Right Arm: Motor (10-second hold) - 0(No drift) 6a. Left Leg: Motor (5-second hold - always test supine) - 1(Drift) 6b. Right Leg: Motor (5-second hold - always test supine) - 0(No drift) 7. Limb Ataxia (finger/nose \T\ heel/chavez - test with eyes open) - 0(Absent) 8. Sensory Loss (pinprick arms/legs/face) - 1(Mild to moderate loss) 9. Best Language: Aphasia (description/naming/reading) - 0(No aphasia) 10. Dysarthria (speech clarity - read or repeat words) - 0(Normal) 11. Extinction and Inattention (visual/tactile/auditory/spatial/personal) - 0(No abnormality) Initials: kr3 NIH Stroke Scale - NIH Stroke Score Date: 07/07/2022 Time: 11:10 Total Score = 4 1a. Level of Consciousness (LOC) - 0(Alert) 1b. Level of Consciousness (LOC) (Month \T\ Age) - 0(Both) 1c. LOC Commands (Open \T\ Closes Eyes/Supervisor Fur Dressing) - 0(Both) 2. Best Gaze (Lateral Gaze Paresis) - 0(Normal) 3. Visual Field Loss - 0(No visual loss) 4. Facial Palsy - 1(Minor Paralysis) 5a. Left Arm: Motor (10-second hold) - 1(Drift) 5b. Right Arm: Motor (10-second hold) - 0(No drift) 6a. Left Leg: Motor (5-second hold - always test supine) - 1(Drift) 6b. Right Leg: Motor (5-second hold - always test supine) - 0(No drift) 7. Limb Ataxia (finger/nose \T\ heel/chavez - test with eyes open) - 0(Absent) 8. Sensory Loss (pinprick arms/legs/face) - 1(Mild to moderate loss) 9. Best Language: Aphasia (description/naming/reading) - 0(No aphasia) 10. Dysarthria (speech clarity - read or repeat words) - 0(Normal) 11. Extinction and Inattention (visual/tactile/auditory/spatial/personal) - 0(No abnormality) Initials: ms3 Signatures: Nini Nicole am2 Charla Salazar Marcus, DO ms3 Hailey Ruggiero, DISPENSARY TECHNICIAN DISPENSARY TECHNICIAN 7 Sheri Love, RN RN ha1 Jeanette Orona RN RN kr3 Radha Stanley, RN RN db Angie Villanueva 1 Denisha Brody RN ko1 Corrections: (The following items were deleted from the chart) 07/07 10:42 10:41 PMHx: Myocardial infarction; kr3 kr3 14:04 11:31 TNK FOR STROKE - Tenecteplase 0.25 mg/kg IV at per protocol in left kr3 antecubital kr3 16:59 10:43 Bed in low position. Call light in reach. Side rails up X 1. kr3 kr3 17:03 16:59 Respiratory: kr3 kr3 17:06 11:30 Reassessment: Patient and/or family updated on plan of care and expected kr3 duration. Pain level reassessed. Patient is alert, oriented x 3, equal unlabored respirations, skin warm/dry/pink. kr3
--- NOTE | 2022-07-07 12:01 | EDPHYS ---
Physician Documentation [facility] Name: Estefania Tan Age: 41 yrs Sex: Female : 1980 Arrival Date: 07/07/2022 Time: 10:18 Bed 16 Private MD: ED Physician Ian Tee HPI: 07/07 10:27 This 41 yrs old Female presents to ER via Unassigned with complaints of ms3 Breathing Difficulty, Numbness Of Arm, Anxiety. 10:27 41-year-old female with past medical history of sinus venous thrombosis, CVA presents ms3 for chest pain that began 1 hour prior to arrival. Patient endorses shortness of breath, nausea. Patient states her pain is an 8/10 and located substernally. Patient denies alleviating or inciting factors. Patient denies vomiting, diaphoresis, fevers, chills, cough... Historical: - Allergies: 10:41 Ciprofloxacin; kr3 10:41 PENICILLINS; kr3 - PMHx: 10:41 Migraines; PTSD; Cerebrovascular accident; kr3 - Immunization history:: Adult Immunizations not up to date. - Social history:: Smoking status: Reported history of juuling and/or vaping. ROS: 10:27 Constitutional: Negative for fever, and chills. ENT: Negative for injury, pain, and ms3 discharge, Neck: Negative for injury, pain, and swelling. 10:27 MS/Extremity: Negative for injury and deformity, Skin: Negative for injury, rash, and discoloration. 10:27 Cardiovascular: Positive for chest pain. 10:27 Respiratory: Positive for shortness of breath. 10:27 All other systems are negative. Exam: 10:27 Constitutional: This is a well developed, well nourished patient who is awake, alert, ms3 and in no acute distress. Head/Face: Normocephalic, atraumatic. Neck: Trachea midline, no cervical lymphadenopathy. Supple, full range of motion without nuchal rigidity, or vertebral point tenderness. No Meningismus. Chest/axilla: Normal chest wall appearance and motion. Nontender with no deformity. Respiratory: Lungs have equal breath sounds bilaterally, clear to auscultation and percussion. No rales, rhonchi or wheezes noted. No increased work of breathing, no retractions or nasal flaring. Abdomen/GI: Soft, non-tender, with normal bowel sounds. No distension or tympany. No guarding or rebound. No evidence of tenderness throughout. 10:27 Cardiovascular: Rate: tachycardic, Rhythm: regular, Pulses: no pulse deficits are appreciated, Heart sounds: normal. 10:48 ECG was reviewed by the Attending Physician. ms3 Vital Signs: 10:33 BP 129 / 74; Pulse 91; Resp 18; Temp 96.5(A); Pulse Ox 100% on R/A; Weight 63.5 kg; kr3 Height 5 ft. 3 in. (160.02 cm); 11:30 BP 156 / 82; Pulse 88; Resp 18; Pulse Ox 100% on R/A; kr3 12:30 BP 124 / 81; Pulse 71; Resp 18; Pulse Ox 100% on R/A; kr3 13:30 BP 117 / 83; Pulse 69; Resp 18; Pulse Ox 100% on 2 lpm NC; kr3 14:30 BP 118 / 73; Pulse 81; Resp 18; Pulse Ox 100% on NC; kr3 15:30 BP 101 / 66; Pulse 64; Resp 18; Pulse Ox 99% on R/A; kr3 10:33 Body Mass Index 24.80 (63.50 kg, 160.02 cm) kr3 NIH Stroke Scale Scores: 11:01 NIHSS Score: 4 kr3 11:10 NIHSS Score: 4 ms3 MDM: 10:19 Patient medically screened. [facility] 10:27 Differential diagnosis: Anxiety Reaction pneumonia, Pneumothorax Pulmonary Embolism. ms3 11:03 ED course: Called to patient's room for left facial droop. Patient with mild L facial ms3 droop, mild upper and lower drift.. 11:09 ED course: Discussed case with Dr Armendariz. If CT head negative patient TNKase ms3 candidate. R/O LVO.. 12:00 Immunization status:. Data reviewed: vital signs, nurses notes, lab test result(s), ms3 EKG, radiologic studies, and as a result, I will discharge patient. Consideration of Admission/Observation Patient was admitted/placed on observation. Management of patient was discussed with the following: Hospitalist: Dr Larkin. [place] Tier: Dr Armendariz. I considered the following discharge prescriptions or medication management in the emergency department Medications were administered in the Emergency Department. See MAR. Independent interpretation of the following test(s) in the Emergency Department EKG: See my EKG interpretation above CT Scan: My interpretation is No ICH seen on CT head images reviewed by me. Discussion of test interpretation with radiology: I had a discussion with radiology regarding a test interpretation. CT head negative per Dr Day. Counseling: I had a detailed discussion with the patient and/or guardian regarding: the historical points, exam findings, and any diagnostic results supporting the discharge/admit diagnosis, lab results, radiology results, the need for further work-up and treatment in the hospital, Discussed risks and benefits of TNKase with patient. Patient agreed to proceed with TNKase. 12:20 ED course: Notified by RN that patient received 35 mg TNKase vs 25 mg TNKase. Patient ms3 notified discrepancy. Patient states her symptoms have improved at this time. Patient with movement of all extremities and improved sensation. Will continue to closely monitor patient. Discussed improvement of symptoms and discrepancy with Dr Armendariz.. 07/07 10:26 Order name: Basic Metabolic Panel ms3 07/07 10:26 Order name: CBC with Diff ms3 07/07 10:26 Order name: D-Dimer ms3 07/07 10:26 Order name: Magnesium ms3 07/07 10:26 Order name: PT-INR ms3 07/07 10:26 Order name: Troponin HS ms3 07/07 10:26 Order name: XRAY Chest (1 view) ms3 07/07 10:26 Order name: EKG; Complete Time: 10:27 ms3 07/07 10:26 Order name: Cardiac monitoring; Complete Time: 10:42 ms3 07/07 10:26 Order name: EKG - Nurse/Tech; Complete Time: 10:42 ms3 07/07 10:26 Order name: IV Saline Lock; Complete Time: 10:42 ms3 07/07 10:26 Order name: Labs collected and sent; Complete Time: 10:42 ms3 07/07 10:26 Order name: O2 Per Protocol; Complete Time: 10:43 ms3 07/07 10:26 Order name: O2 Sat Monitoring; Complete Time: 10:43 ms3 07/07 10:47 Order name: CBC with Automated Diff; Complete Time: 10:48 EDMS 07/07 10:54 Order name: Protime (+INR); Complete Time: 11:03 EDMS 07/07 10:56 Order name: D-Dimer; Complete Time: 11:03 EDMS 07/07 11:03 Order name: CT Stroke Brain w/o Contrast ms3 07/07 11:03 Order name: Accucheck; Complete Time: 13:07 ms3 07/07 11:03 Order name: NPO; Complete Time: 13:07 ms3 07/07 11:03 Order name: Stroke Swallow Screen; Complete Time: 13:27 ms3 07/07 11:05 Order name: Basic Metabolic Panel; Complete Time: 11:18 EDMS 07/07 11:05 Order name: Troponin High Sensitivity; Complete Time: 11:18 EDMS 07/07 11:05 Order name: Magnesium; Complete Time: 11:18 EDMS 07/07 11:07 Order name: CT Head Angio ms3 07/07 11:07 Order name: CT Neck Angio ms3 07/07 11:08 Order name: RAD; Complete Time: 11:18 EDMS 07/07 11:17 Order name: CT; Complete Time: 12:27 EDMS 07/07 11:18 Order name: Glucose, Ancillary Testing; Complete Time: 11:30 EDMS 07/07 11:28 Order name: CT; Complete Time: 11:30 EDMS 07/07 11:29 Order name: CT; Complete Time: 11:30 EDMS 07/07 12:56 Order name: SARS RAPID eb 07/07 13:21 Order name: SARS-COV-2 Antigen Rapid; Complete Time: 15:32 EDMS 07/07 18:14 Order name: MRI; Complete Time: 04:25 EDMS 07/07 18:54 Order name: Troponin High Sensitivity; Complete Time: 04:25 EDMS 07/07 19:02 Order name: T4,Total; Complete Time: 04:25 EDMS 07/07 19:02 Order name: Thyroid Stimulating Hormone; Complete Time: 04:25 EDMS 07/07 23:24 Order name: Troponin High Sensitivity; Complete Time: 04:25 EDMS 07/08 06:59 Order name: CBC with Automated Diff EDMS 07/08 07:15 Order name: Troponin High Sensitivity EDMS 07/08 07:21 Order name: Comprehensive Metabolic Panel EDMS 07/08 07:21 Order name: Lipid Profile EDMS 07/08 07:21 Order name: Magnesium EDNC 07/08 11:13 Order name: NT PRO-BNP EDNC 07/08 11:13 Order name: C-Reactive Protein EDNC 07/08 12:20 Order name: CT EDNC EC:48 Rate is 82 beats/min. Rhythm is regular. QRS [place] is Normal. [place] interval is normal. QRS ms3 interval is normal. QT interval is normal. Clinical impression: Normal ECG. Interpreted by me. Reviewed by me. Administered Medications: 11:31 Drug: TNK FOR STROKE - Tenecteplase 0.25 mg/kg {Co-Signature: ko1 (Denisha Brody kr3 RN).} Route: IV; Rate: per protocol; Site: left antecubital; 11:57 Drug: Ativan (LORazepam) 0.5 mg Route: IVP; Site: left antecubital; kr3 Point of Care Testing: Blood Glucose: 11:08 Blood Glucose: 89 mg/dL; kr3 Ranges: Critical Glucose Levels:Adult <50 mg/dl or >400 mg/dl <40 mg/dl or >180 mg/dl Disposition: 12:02 Critical Care:. ms3 Disposition Summary: 07/07/22 12:00 Hospitalization Ordered Hospitalization Status: Inpatient Admission ms3 Provider: Monty Larkin ms3 Condition: Stable ms3 Problem: new ms3 Symptoms: are unchanged ms3 Bed/Room Type: Standard ms3 Location: Telemetry/MedSurg (Inpatient)(07/08/22 14:51) [facility] Room Assignment: 203(07/08/22 15:10) [facility] Diagnosis - CVA ms3 - Chest pain, unspecified ms3 - Shortness of breath ms3 Forms: - Medication Reconciliation Form ms3 - SBAR form ms3 Critical care time excluding procedures: 12:02 Critical care time: Bedside Care: 40 minutes, Consultation: 15 minutes. Total time: 55 ms3 minutes NIH Stroke Scale - NIH Stroke Score Date: 07/07/2022 Time: 11:01 Total Score = 4 1a. Level of Consciousness (LOC) - 0(Alert) 1b. Level of Consciousness (LOC) (Month \T\ Age) - 0(Both) 1c. LOC Commands (Open \T\ Closes Eyes/Financial Institution Treasurer) - 0(Both) 2. Best Gaze (Lateral Gaze Paresis) - 0(Normal) 3. Visual Field Loss - 0(No visual loss) 4. Facial Palsy - 1(Minor Paralysis) 5a. Left Arm: Motor (10-second hold) - 1(Drift) 5b. Right Arm: Motor (10-second hold) - 0(No drift) 6a. Left Leg: Motor (5-second hold - always test supine) - 1(Drift) 6b. Right Leg: Motor (5-second hold - always test supine) - 0(No drift) 7. Limb Ataxia (finger/nose \T\ heel/chavez - test with eyes open) - 0(Absent) 8. Sensory Loss (pinprick arms/legs/face) - 1(Mild to moderate loss) 9. Best Language: Aphasia (description/naming/reading) - 0(No aphasia) 10. Dysarthria (speech clarity - read or repeat words) - 0(Normal) 11. Extinction and Inattention (visual/tactile/auditory/spatial/personal) - 0(No abnormality) Initials: kr3 NIH Stroke Scale - NIH Stroke Score Date: 07/07/2022 Time: 11:10 Total Score = 4 1a. Level of Consciousness (LOC) - 0(Alert) 1b. Level of Consciousness (LOC) (Month \T\ Age) - 0(Both) 1c. LOC Commands (Open \T\ Closes Eyes/Financial Institution Treasurer) - 0(Both) 2. Best Gaze (Lateral Gaze Paresis) - 0(Normal) 3. Visual Field Loss - 0(No visual loss) 4. Facial Palsy - 1(Minor Paralysis) 5a. Left Arm: Motor (10-second hold) - 1(Drift) 5b. Right Arm: Motor (10-second hold) - 0(No drift) 6a. Left Leg: Motor (5-second hold - always test supine) - 1(Drift) 6b. Right Leg: Motor (5-second hold - always test supine) - 0(No drift) 7. Limb Ataxia (finger/nose \T\ heel/chavez - test with eyes open) - 0(Absent) 8. Sensory Loss (pinprick arms/legs/face) - 1(Mild to moderate loss) 9. Best Language: Aphasia (description/naming/reading) - 0(No aphasia) 10. Dysarthria (speech clarity - read or repeat words) - 0(Normal) 11. Extinction and Inattention (visual/tactile/auditory/spatial/personal) - 0(No abnormality) Initials: ms3 Signatures: Dispatcher [employer] EDOleksandr Flores, CERTIFIED PROSTHETIST/ORTHOTIST-C CERTIFIED PROSTHETIST/ORTHOTIST-Cla1 Jermaine Martinez RN RN jl7 Reinaldo Carmen RN RN ja1 Ian Tee, DO ms3 Hailey Ruggiero FNP CERTIFIED PROSTHETIST/ORTHOTIST 7 Jeanette Orona RN RN kr3 Denisha Brody RN ko1 Corrections: (The following items were deleted from the chart) 10:42 10:41 PMHx: Myocardial infarction; kr3 kr3 11:09 11:03 ED course: Called to patient's room for left facial droop. ms3 ms3 18:17 12:00 Intensive Care Unit ms3 jl7 18:17 12:00 ms3 jl7 07/08 14:51 07/07 18:17 [facility] ER HOLD jl7 [facility] 07/08 14:51 07/07 18:17 ERHOLD- jl7 [facility] 07/08 15:10 14:51 [address] [place] [address]
[2022-07-07 13:21] LABS: SARS-CoV-2 Antigen Rapid Res Negative (Negative)
[2022-07-07] MEDS ORDERED: ONDANSETRON 4 MG/2 ML VIAL IV PRN (14:10)
--- NOTE | 2022-07-07 14:17 | P.HP ---
Certification for Inpatient Patient admitted to: Inpatient With expected LOS: >2 Midnights Practitioner: I am a practitioner with admitting privileges, knowledge of patient current condition, hospital course, and medical plan of care. Services: Services provided to patient in accordance with Admission requirements found in Title 42 Section 412.3 of the Code of Federal Regulations Patient History Date of Service: 07/07/22 Reason for admission: CVA, chest pain History of Present Illness: 41yo F, PMH: CVA/TIA, DVT on Coumadin, PTSD, migraine. Presented to the ED due to 1 day of shortness of breath, associated with chest pressure, and headache. Symptoms began approximately at 8 AM, within 1 hour of waking. She was not doing any strenuous physical activity at that time, only making coffee. Upon initial evaluation in the ED, she was noted to have left sided facial droop, left-sided weakness (upper and lower extremity). Code stroke was initiated, patient underwent CT head which was negative for any acute findings. NIH stroke scale of 4. Neurology was consulted, and recommended TNKase. The ED physician and neurology had a discussion regarding TNKase given that the patient is on Coumadin for DVT. Currently her INR is subtherapeutic at 1.68. Given the acute onset of her symptoms, concern for CVA, neurology recommended TNKase. At the time of my exam, patient states she has had some slight improvement of slurred speech, vision, and weakness. No resolution of the symptoms yet. She has also had significant improvement in her shortness of breath. Initially felt as though she could not take a deep breath, and at times too short of breath to complete sentences. In the ED, initial blood work was rather unremarkable, CT head negative, patient received TNKase. She is admitted for further work-up and evaluation of her symptoms, close monitoring after TNKase. Allergies ciprofloxacin [From Cipro] Allergy (Verified 11/21/16 12:18) UNK Penicillins Adverse Reaction (Verified 11/21/16 12:18) Nausea/Vomiting Home medications list reviewed: Yes Home Medications: Cetirizine HCl [Zyrtec] DAILY 07/07/22 Warfarin Sodium [Coumadin] 2 mg PO 07/07/22 - Past Medical/Surgical History -: Migraines -: PTSD -: CVA (5yrs ago and 3.5 yrs ago) -: DVT -: Heart murmur -: Partial Pinky Amputation -: Bone Graft -: Tubal Ligation - Family History Family History: Reviewed- Non-Contributory - Family History Grandpa -: Heart disease Grandma -: Cancer (Pancreatic) - Social History Smoking Status: Current every day smoker (vaping) Alcohol use: No CD- Drugs: No Place of Residence: Home Review of Systems General: Chills Eyes: Vision Change ENT: As per HPI Respiratory: Shortness of Breath Cardiovascular: Chest Pain Gastrointestinal: Nausea Genitourinary: Unremarkable Musculoskeletal: As per HPI Integumentary: Unremarkable Neurological: Weakness, Numbness, Change in Speech Lymphatics: As per HPI Physical Examination - Physical Exam General: Alert, Oriented x3 HEENT: PERRLA, Other (left eye with nystagmus), Sclerae nonicteric Respiratory: Clear to auscultation bilaterally, Normal air movement Cardiovascular: No edema, Regular rate/rhythm Capillary refill: <2 Seconds Gastrointestinal: Soft and benign, Non-distended, No tenderness Musculoskeletal: No contractures, No tenderness Integumentary: No rashes, No significant lesion Neurological: Normal speech, Cranial nerves 3-12 intact (except: lower facial droop), Normal affect, Other (RUE/RLE: 5/5 strength, LUE/LLE: 4/5 strength), Abnormal reflexes (3+ b/l lower extremity patella reflex) - Studies Laboratory Data (last 24 hrs) 07/07/22 10:37: PT 18.5 H, INR 1.68 07/07/22 10:37: WBC 7.20, Hgb 12.8, Hct 39.7, Plt Count 392 07/07/22 10:37: Sodium 135 L, Potassium 4.2, BUN 15, Creatinine 0.95, Glucose 113 H, Magnesium 2.2 Assessment and Plan - Advance Directives Does patient have a Living Will: No Does patient have a Durable POA for Healthcare: No - Code Status/Comfort Care Code Status Assessed: Yes Physician Review Additional Text: Problem List: Left sided weakness (face, LUE, LLE), concerning for acute CVA History of prior CVA (resolved right-sided weakness) Chest pain/pressure Shortness of breath Migraines PTSD Prior DVT, on Coumadin Left-sided weakness noted in the ED, concerning for acute CVA Patient with prior history of CVAs, reports had right-sided weakness 5 years ago, and tingling and some dysphagia during her "second stroke" ~2 years ago Status post TNKase in the ED after ED physician and neurology discussion Patient is on Coumadin, subtherapeutic INR of 1.6 Admit to ICU, monitor for bleeding CT 24 hours after TNKase Statin MRI ordered Lipid panel Echocardiogram Carotid ultrasound PT consult Neurology consult Initial presentation was for chest pain and shortness of breath CTA negative for PE, no acute findings Unclear etiology, possibly from muscle weakness Reports history of murmur, denies any prior cardiac history Consult cardiology, trend troponin, monitor on telemetry VTE: SCDs, hold Coumadin, status post TNKase Code: Full Dispo: Admit to ICU for close neuro monitoring Home, 1-2 days Time Spent Managing Pts Care (In Minutes): 45
--- NOTE | 2022-07-07 14:28 | EKG ---
Test Date: 2022-07-07 Test Time: 10:38:04 Snack Bar Attendant: MIRIAN MEASUREMENT RESULTS: Intervals: Rate: 82 MN: 150 QRSD: 68 QT: 352 QTc: 411 [place]: P: 76 MN: 150 QRS: 60 T: 67 INTERPRETIVE STATEMENTS: Normal sinus rhythm Normal ECG Compared to ECG 11/21/2016 10:10:11 Sinus bradycardia no longer present Electronically Signed On 07-07-22 14:27:50 DENTAL ASSISTANT TEACHER by Ander Tyson
[2022-07-07] MEDS ORDERED: NA CHLORIDE 0.9% 1,000 ML ONE (17:32)
[2022-07-07] MEDS: NA CHLORIDE 0.9% 1,000 ML IV SCH (17:45)
--- NOTE | 2022-07-07 18:13 | RAD REPORT ---
EXAM DESCRIPTION: MRI - Brain Wo Cont - 07/07/2022 5:38 pm CLINICAL HISTORY: Left-sided weakness. CVA COMPARISON: Head CT July 07, 2022 TECHNIQUE: Axial, sagittal, and coronal magnetic resonance images of the brain were obtained. FINDINGS: Diffusion-weighted/ADC mapping demonstrates a punctate area of abnormal signal left cerebellum. Otherwise, no significant abnormal signal within the brain. The ventricles are normal caliber. An extra-axial fluid collection is not noted. Fluid within the sinuses/mastoids is not seen IMPRESSION: Punctate area of abnormal signal left cerebellum. It is uncertain whether this represent s an acute micro infarct or artifact and should be correlated clinically.
[2022-07-07 18:18] VITALS: BMI 24.7
[2022-07-07 19:02] LABS: T4,Total 7.3 ug/dL (4.8-13.9); Thyroid Stimulating Hormone 2.77 uIU/mL (0.358-3.740)
--- NOTE | 2022-07-07 19:05 | CON ---
Date of Consultation: 07/07/2022 Reason For Consultation: Chest pain. History Of Present Illness: This 41-year-old female with history of CVA, DVT on Coumadin, and migrai ne headache presented with chest pressure, spontaneous that lasted for about an hour. She was making coffee and radiated to her neck, along with shortness of breath and chest pain has completely resolv ed by now. No history of coronary artery disease, but she has antiphospholipid syndrome and she is o n chronic therapy with Coumadin. Past Medical History: As outlined above in HPI. Medications: Refer to reconciliation sheet for detailed list. Allergies: CIPRO AND PENICILLIN. Family History: No premature coronary artery disease or cancer. Social History: She is an active smoker. Does not drink or use any drugs. Review of Systems: All systems reviewed and they were negative except as mentioned in HPI. Physical Examination: Vital Signs: Reviewed. Head And Neck: Pupils are equal and reactive to light. Intact eye movements. No JVD. No cervical lymphadenopathy. Neck is supple. Thyroid is not enlarged. Lungs: Clear to auscultation bilaterally. No rhonchi, wheezing, or crackles. No accessory muscle u se. Heart: Regular rate and rhythm. No extra sounds. Abdomen: Soft, nontender. Bowel sounds positive. No organomegaly. No masses or hernia. No rigidi ty or rebound. Extremities: No edema, clubbing, or cyanosis. Intact pulses. Skin: No rash. Neurologic: Alert, awake, oriented x3. No acute focal deficits appreciated. Lymph Nodes: No cervical or axillary lymphadenopathy. Investigations: First cardiac enzyme is negative and BUN 15, creatinine 0.95, and hemoglobin 12.8. Assessment/recommendation: 1.Chest pain. It is atypical. First cardiac enzyme is negative. Trend 2 more sets of troponin and monitor on telemetry. If cardiac enzymes are negative, she can be released and follow up as an outp atient for cardiac stress test. 2.History of stroke and deep vein thrombosis. Likely, she has patent foramen ovale and she has hist ory of migraine and likely the patent foramen ovale has high risk features. Recommend echo with bubbl e study. If it confirms, then she will benefit from patent foramen ovale closure. I discussed that with her in details. I can follow up with the patient as an outpatient and study this issue. SR/MODL Voice ID: [id number] Report ID: [id number]
[2022-07-07] MEDS ORDERED: ACETAMINOPHEN 500 MG TAB ONE (19:07)
[2022-07-07] MEDS: ACETAMINOPHEN 500 MG TAB PO PRN (19:22)
[2022-07-07] MEDS ORDERED: ATORVASTATIN 40 MG TAB ONE (20:32)
[2022-07-07] MEDS: ATORVASTATIN 40 MG TAB PO SCH (21:00)
[2022-07-08] MEDS: NA CHLORIDE 0.9% 1,000 ML IV SCH ×3 (04:20→23:47)
[2022-07-08] MEDS ORDERED: NA CHLORIDE 0.9% 1,000 ML ONE (06:36)
[2022-07-08 06:58] LABS: Absolute Lymphocytes (CBC) 2.1 K/uL (0.7-4.9); Hematocrit 32.2 % (36.0-45.0); Lymphocytes % 27.5 % (15.3-44.8); MCV 83.2 fL (80-100); MPV 8.9 fL (7.6-11.3); RBC Red Blood Cell Count 3.88 M/uL (3.86-4.86)
[2022-07-08 07:16] LABS: Albumin 3.1 g/dL (3.4-5.0); Bilirubin Total 0.2 mg/dL (0.2-1.0); Magnesium 2.3 mg/dL (1.6-2.4); Potassium 4.2 mmol/L (3.5-5.1)
--- NOTE | 2022-07-08 07:27 | P.PN ---
Date of Service: 07/08/22 Subjective: SOB overnight with chest pain - worse when laying back; improves quickly laying forward Dizziness worse than yesterday Describes function of L extremities and numbness "60% better" Headache continues; less severe ROS: 10 point ROS as noted above, otherwise negative Physical Exam: Gen: Alert, Oriented x3 HEENT: PERRL, left eye with nystagmus at bilateral extremes, trigger dizziness, Sclerae nonicteric CV: regular rate and rhythm, no edema Pulm: Clear to auscultation bilaterally, Normal air movement Abd: Soft and benign, Non-distended, No tenderness MSK: moderate tenderness to palpation along sternum Integumentary: No rashes, No significant lesion Neuro: Normal speech, Cranial nerves 3-12 intact (except: mild lower facial droop improved), Normal affect, Other (RUE/RLE: 5/5 strength, LUE/LLE: 4+/5 strength) LUE/LLE with ataxia, worse in LLE Problem List: Left sided weakness (face, LUE, LLE), secondary to for acute CVA - L cerebellum History of prior CVA (resolved right-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 Chest pain/pressure Shortness of breath Migraines PTSD h/o Left cavernous venous thrombosis, on Coumadin MRI: microinfarct suspected in L cerebellum would be consistent with exam findings deficits with slight improvement, but not resolved neuro consulted CT head - repeat 24hrs after tnkase, no acute process discussed with neuro, ok to restart coumadin 3/4 evening, bridge with lovenox possibly due to thrombus while subtherapeutic pt states she was told possible antiphospholipid syndrome by one doctor, then told results were not consistent with the diagnosis (years ago) echo pending Cerebellar stroke would explain left eye symptoms, ataxia, headache *was at [facility] a few days prior to this admission with left sided weakness/tingling. CT, CTA head/neck, MRI were all negative at that time. noted to be supratherapeutic, discharged home and advised to hold for 2 days, take 1 mg Coumadin daily. Chest pain, shortness of breath chest wall tenderness, possibly costochondritis Restrained coincident with 2 separate issues occurring Quick improvement/resolution of some of her symptoms when she sits up/forward, findings typically seen with pericarditis trop negative x3 check CRP cardiology consulted echo ordered - with bubble study, ?ASD VTE: restart Coumadin, bridged with Lovenox starting 3/ evening Code: Full Dispo: Okay to downgrade to telemetry
[2022-07-08] MEDS: COLCHICINE 0.6 MG TAB PO SCH ×2 (11:00→20:28)
[2022-07-08 11:11] LABS: NT PRO-BNP 12 pg/mL (<125)
[2022-07-08 11:13] LABS: C-Reactive Protein < 2.90 mg/L (<3.00)
[2022-07-08] MEDS ORDERED: INFLUENZA VACCINE (for 6+ mo) 0.5 ML DOSE IMVAC ONE (12:00)
--- NOTE | 2022-07-08 12:19 | RAD REPORT ---
EXAM DESCRIPTION: CT - Head Brain Wo Cont - 07/08/2022 11:57 am CLINICAL HISTORY: 24hr s/p tnkase COMPARISON: Head angio dated 07/07/2022; Ct Stroke Brain Wo Cont dated 07/07/2022; Brain Wo Cont dated TECHNIQUE: Noncontrast head CT images ad were obtained without IV contrast. Multiplanar reformats we re generated and reviewed. All CT scans are performed using dose optimization technique as appropriate and may include automated exposure control or mA/KV adjustment according to patient size. FINDINGS: No intracranial hemorrhage, mass, or edema. Midline structures are unremarkable. Normal ventricular caliber for age. Holm-white matter differentiation is preserved, without evidence of acute infarct. No abnormal extra- axial fluid collections. Mastoid air cells and visualized portions of the paranasal sinuses are clear. No acute bony findings. IMPRESSION: No evidence of an acute intracranial process.
[2022-07-08] MEDS ORDERED: WARFARIN SODIUM 1 MG TAB PO SCH (17:00)
[2022-07-08] MEDS: ACETAMINOPHEN 500 MG TAB PO PRN ×2 (17:23→23:53)
[2022-07-08] MEDS: ENOXAPARIN 60 MG/0.6 ML SQ SCH (20:28)
[2022-07-08] MEDS: ATORVASTATIN 40 MG TAB PO SCH (20:28)
[2022-07-09 06:30] LABS: Phosphorus 2.7 mg/dL (2.5-4.9); Potassium 4.3 mmol/L (3.5-5.1)
--- NOTE | 2022-07-09 06:57 | P.PN ---
Date of Service: 07/09/22 Subjective: positional chest pain / SOB unchanged L sided weakness improving daily, but still having trouble Headache improving, but not resolved; worsened by bright lights no difficulty swallowing /talking no new neuro symptoms ROS: 10 point ROS as noted above, otherwise negative Physical Exam: Gen: Alert, Oriented x3 HEENT: PERRL, left eye with nystagmus at bilateral extremes, triggers dizziness, Sclerae nonicteric CV: regular rate and rhythm, no edema Pulm: Clear to auscultation bilaterally, nonlabored respirations Abd: Soft, Non-distended, No tenderness MSK: moderate tenderness to palpation along sternum, no rash Neuro: Normal speech, Cranial nerves 3-12 intact (except: minimal lower facial droop improved), Normal affect, Other (RUE/RLE: 5/5 strength, LUE/LLE: 4+/5 strength) LUE/LLE with ataxia, worse in LLE Problem List: Left sided weakness (face, LUE, LLE), secondary to for acute CVA - L cerebellum History of prior CVA (resolved right-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 Chest pain/pressure Shortness of breath Migraines PTSD h/o Left cavernous venous thrombosis, on Coumadin MRI: microinfarct suspected in L cerebellum would be consistent with exam findings possibly due to thrombus while subtherapeutic deficits with slight improvement each day, but not resolved least improved has been her L eye neuro consulted CT head - repeat 24hrs after tnkase, no acute process discussed with neuro, ok to restart coumadin 3/4 evening, bridge with lovenox home regimen varies, but usually 1mg daily, except Pepe/Aayush takes 2mg 1mg given 3/4, 2mg 3/5 pt states she was told possible antiphospholipid syndrome by one doctor, then told results were not consistent with the diagnosis (years ago) echo pending - bubble study Cerebellar stroke would explain left eye symptoms, ataxia, headache *was at [facility] a few days prior to this admission with left sided weakness/tingling. CT, CTA head/neck, MRI were all negative at that time. noted to be supratherapeutic, discharged home and advised to hold for 2 days, take 1 mg Coumadin daily. Chest pain, shortness of breath chest wall tenderness, possibly costochondritis strange coincidence to have these 2 separate issues occurring Quick improvement/resolution of her symptoms (pain/shortness of breath) when she sits up/forward, findings typically seen with pericarditis trop negative x3 CRP <2.9 cardiology consulted -started colchicine 3 evening echo ordered - with bubble study, ?ASD - planned for 07/10 VTE: restart Coumadin, bridged with Lovenox starting 07/08 evening Code: Full Dispo: home vs rehab, PT/OT /ST consulted ~1-2 days echo, eval, bridge INR
[2022-07-09 08:02] LABS: Protime INR 1.82
[2022-07-09] MEDS: ACETAMINOPHEN 500 MG TAB PO PRN (08:16)
[2022-07-09] MEDS: COLCHICINE 0.6 MG TAB PO SCH ×2 (08:16→20:43)
[2022-07-09] MEDS: ENOXAPARIN 60 MG/0.6 ML SQ SCH ×2 (08:16→20:43)
[2022-07-09] MEDS: LORAZEPAM 0.5 MG TABLET PO PRN ×2 (09:50→22:10)
[2022-07-09] MEDS ORDERED: INFLUENZA VACCINE (for 6+ mo) 0.5 ML DOSE IMVAC ONE (12:00)
[2022-07-09] MEDS ORDERED: WARFARIN SODIUM 2 MG TAB PO SCH (17:00)
[2022-07-09] MEDS: ATORVASTATIN 40 MG TAB PO SCH (20:43)
[2022-07-10 06:14] LABS: Hematocrit 32.2 % (36.0-45.0); MCV 82.6 fL (80-100); MPV 8.6 fL (7.6-11.3); RBC Red Blood Cell Count 3.89 M/uL (3.86-4.86)
[2022-07-10 06:28] LABS: Protime INR 2.13
--- NOTE | 2022-07-10 06:54 | P.PN ---
Date of Service: 07/10/22 Subjective: substernal chest pain, radiating to left shoulder L sided weakness continues to improve daily Headache improving, but not resolved no new neuro symptoms ROS: 10 point ROS as noted above, otherwise negative Physical Exam: Gen: Alert, Oriented x3 HEENT: PERRL, left eye with nystagmus at bilateral extremes, triggers dizziness, Sclerae nonicteric CV: regular rate and rhythm, no edema Pulm: Clear to auscultation bilaterally, nonlabored respirations MSK: moderate tenderness to palpation along sternum, no rash Neuro: Normal speech, Cranial nerves 3-12 intact (except: minimal lower facial droop improved), Normal affect, Other (RUE/RLE: 5/5 strength, LUE/LLE: 4+/5 strength) LUE/LLE with ataxia, worse in LLE Problem List: Left sided weakness (face, LUE, LLE), secondary to for acute CVA - L cerebellum History of prior CVA (resolved right-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 Chest pain/pressure Shortness of breath Migraines PTSD h/o Left cavernous venous thrombosis, on Coumadin MRI: microinfarct suspected in L cerebellum would be consistent with exam findings possibly due to thrombus while subtherapeutic deficits with slight improvement each day, but not resolved least improved has been her L eye neuro consulted CT head - repeat 24hrs after tnkase, no acute process discussed with neuro, ok to restart coumadin 3/4 evening, bridge with lovenox home regimen varies, but usually 1mg daily, except Pepe/Aayush takes 2mg 1mg given 3/, 2mg 3/; 1mg 3/6 pt states she was told possible antiphospholipid syndrome by one doctor, then told results were not consistent with the diagnosis (years ago) Rehab options discussed with patient, prefers at hospital if insurance allows Cerebellar stroke would explain left eye symptoms, ataxia, headache *was at [facility] a few days prior to this admission with left sided weakness/tingling. CT, CTA head/neck, MRI were all negative at that time. noted to be supratherapeutic, discharged home and advised to hold for 2 days, take 1 mg Coumadin daily. Chest pain, shortness of breath chest wall tenderness, possibly costochondritis strange coincidence to have these 2 separate issues occurring Quick improvement/resolution of her symptoms (pain/shortness of breath) when she sits up/forward, findings typically seen with pericarditis trop negative x3 CRP <2.9 cardiology consulted -started colchicine 07/08 evening echo ordered - with bubble study, ?ASD - 07/10 - pending; r/o pericardial effusion inappropriately canceled without my knowledge. asked charge nurse to place stat echo to be done VTE: restart Coumadin, bridged with Lovenox starting 07/08 evening Code: Full Dispo: home , PT/OT /ST consulted ~1 day echo needed
[2022-07-10] MEDS: ENOXAPARIN 60 MG/0.6 ML SQ SCH (08:24)
[2022-07-10] MEDS: COLCHICINE 0.6 MG TAB PO SCH ×2 (08:24→21:46)
[2022-07-10] MEDS: LORAZEPAM 0.5 MG TABLET PO PRN (16:26)
--- NOTE | 2022-07-10 16:46 | EKG ---
Test Date: 2022-07-08 Test Time: 04:35:52 Laborer Heading: GUZMAN MEASUREMENT RESULTS: Intervals: Rate: 65 ND: 136 QRSD: 74 QT: 416 QTc: 432 [place]: P: 57 ND: 136 QRS: 60 T: 60 INTERPRETIVE STATEMENTS: Normal sinus rhythm Normal ECG Compared to ECG 07/07/2022 10:38:04 No significant changes Electronically Signed On 07-10-22 16:39:18 GATE ATTENDANT by Ander Tyson
[2022-07-10] MEDS ORDERED: WARFARIN SODIUM 1 MG TAB PO SCH (17:00)
[2022-07-10] MEDS: ATORVASTATIN 40 MG TAB PO SCH (21:46)
[2022-07-10] MEDS: ACETAMINOPHEN 500 MG TAB PO PRN (21:48)
--- NOTE | 2022-07-11 01:18 | CON ---
Consultation called because of stroke. History Of Present Illness: Ms. Tan is a 41-year-old right-handed patient with a reported history of antiphospholipid antibody syndrome, multiple strokes, and deep vein thrombosis, who is a and has been on Coumadin therapy, [facility] and her antiphosph olipid antibody syndrome. She has not been very compliant with Coumadin and reportedly developed lef t-sided incoordination, weakness, and facial droop. Symptoms began around 8 a.m. and the patient cam e to [facility] around 10:18 a.m. She had a head CT scan that was negative for any acute is chemic hemorrhagic changes. The case was discussed with the emergency room physician and it was dete rmined that since she had deficits of coordination, left-sided weakness, which the patient said is wo rse than her baseline with NIH Stroke Scale of 4, she was given TNKs. She did report some improvemen t in her symptoms, however, a subsequent NIH Stroke Scale as identified by the hospitalist did place it at around 6, despite the patient saying she felt somewhat improved. She was admitted first to the ICU, monitored, and subsequently, had a brain MRI, which was done on the . The study identified punctate area of abnormal signal in left cerebellum. It was noted it is uncertain whether it represe nts acute microinfarct or artifact and correlation clinically was recommended. The patient was able to ambulate in the hospital room on the day I have seen her, which is today. She was slightly wide-b ased, ataxic, more on the left than on the right side. She did not have any significant speech issue s, mild nystagmus noted, and NIH Stroke Scale was still around 4. Past Medical History: Migraine and PTSD. Past Surgical History: Amputation of little finger, bone graft, and tubal ligation. Allergies: CIPROFLOXACIN AND PENICILLIN. Home Medications: Coumadin 2 mg daily. [facility]. On her arrival to the [facility], however, INR was 1.6, not between 2.5 to 3.5. Other medications, cetirizine, it is the Zyr lanny daily. Family History: Heart disease in grandfather and cancer in grandmother, who has pancreatic cancer. Social History: Smokes vapes daily. Denies alcohol use. Review of Systems: Reports some chills and some shortness of breath. The incoordination, weakness, and change in her sp eech as noted. Otherwise, mild blurring of vision and some chest pain. No genitourinary or dermatol ogical issues. Physical Examination: Vital Signs: Blood pressure 143/69, pulse 94, respiratory rate 16, temperature 98.6, oxygen saturati on 99% on room air. Weight 140 pounds, height 5 feet 3 inches, BMI 24.8. General: Ms. Tan is resting comfortably in the bed at the time of my evaluation. HEENT: She is normocephalic, atraumatic. Sclerae are anicteric. Oropharynx is pink and moist. Neck: Supple. Chest: Clear. Heart: Regular. Extremities: Show no edema or cyanosis. Neurologic: Alert and oriented to situation, place, and person. Follows commands appropriately. Cr anial nerves showed no obvious deficits except mild nystagmus looking to either end finger -to-nose, slight dysmetria on the left compared to the right side, otherwise intact in upper extremit ies and lower extremities. Some mild dysmetria noted on [id number] from the left side. Otherwise, motor exam, slight weakness on the left at 4/5 compared to the right at upper and lower extremity an d 5/5 in the right upper and lower extremity. Sensation intact in the upper and lower extremities bi laterally. Gait is wide-based, mildly ataxic with some more instability noted on the left versus the right lower extremity. Reflexes increased on the left compared to the right upper and lower extremi ty. Laboratory Studies: Complete blood count with differential shows slightly low hemoglobin at 10.5, ot herwise unremarkable. INR today is 2.13. When she came in on the 3rd was 1.68. Chemistries, all un remarkable except chloride slightly elevated at 109. Normal sodium, potassium, BUN. Creatinine 0.67 ; glucose 99, up to 111; calcium 7.7; magnesium 2.3. LDL cholesterol 98, HDL 44. TSH 2.77 and T4 of 7.3. Liver function studies normal. Toxicology screen pending. She does have testing i s negative. Electrocardiogram is normal sinus rhythm, normal study. Assessment: Ms. Tan is a 41-year-old patient with reported antiphospholipid antibody synd codie and multiple prior strokes, however, MRI of the brain just shows the left punctate cerebellar, p erhaps subacute stroke or acute stroke. She is status post TNKs and believe she has improved somewha t. It should be noted that prior strokes also affected the left side, but she felt that she had retu rned almost to normal following those strokes. Additional comorbidities include migraine and posttra umatic stress disorder. Plan: 1.At this point, the target INR should be 2.5 to 3.5 and Coumadin adjusted appropriately. 2.She may receive, if there is headache, Ubrelvy 100 mg as needed to abort headaches. The patient w as instructed on importance of being compliant with Coumadin and addition Lipitor because LDL is grea ter than 74 mg at night. 3.She may use Tylenol for pain. 4.After discharge, she is planned [facility], where her Coumadin and INR are mo nitored. KONRAD/LAITH Voice ID: [id number] Report ID: [id number]
[2022-07-11 03:35] LABS: Protime INR 2.07
[2022-07-11 03:50] LABS: Potassium 3.7 mmol/L (3.5-5.1)
[2022-07-11 04:19] VITALS: O2SAT 99
[2022-07-11] MEDS: LORAZEPAM 0.5 MG TABLET PO PRN (04:32)
[2022-07-11] MEDS: ACETAMINOPHEN 500 MG TAB PO PRN (04:32)
--- NOTE | 2022-07-11 06:58 | ECHO ---
HEIGHT: 5 ft 3 in WEIGHT: 140 lb 0 oz DATE OF STUDY: 07/10/[address]: Monty Larkin MD 2-DIMENSIONAL: YES M.MODE: YES DOPPLER: YES COLOR FLOW: YES TDS: PORTABLE: YES DEFINITY: BUBBLE STUDY: YES DIAGNOSIS: CHEST PAIN CARDIAC HISTORY: CATHERIZATION: SURGERY: PROSTHETIC VALVE: PACEMAKER: MEASUREMENTS (cm) DIASTOLIC (NORMALS) SYSTOLIC (NORMALS) IVSd 0.7 (0.6-1.2) LA Diam 3.1 (1.9-4.0) LVEF 66% LVIDd 4.4 (3.5-5.7) LVIDs 2.8 (2.0-3.5) %FS 36% LVPWd 1.9 (0.6-1.2) Ao Diam 2.5 (2.0-3.7) 2 DIMENSIONAL ASSESSMENT: RIGHT ATRIUM: NORMAL LEFT ATRIUM: NORMAL RIGHT VENTRICLE: NORMAL LEFT VENTRICLE: NORMAL TRICUSPID VALVE: NORMAL MITRAL VALVE: NORMAL PULMONIC VALVE: NORMAL AORTIC VALVE: NORMAL PERICARDIAL EFFUSION: NONE AORTIC ROOT: NORMAL LEFT VENTRICULAR WALL MOTION: NORMAL DOPPLER/COLOR FLOW: TRACE MITRAL REGURGITATION, MILD TRICUSPID REGURGITATION COMMENTS: 1. NORMAL LEFT VENTRICULAR EJECTION FRACTION 60-65% 2. NORMAL WALL MOTION 3. NORMAL DIASTOLIC FUNCTION 4. MILD MITRAL REGURGITATION, TRICUSPID REGURGITATION 5. BUBBLE STUDY IS NEGATIVE FOR INTRA CARDIAC SHUNT TECHNOLOGIST: MILADY WATKINS
[2022-07-11] MEDS: COLCHICINE 0.6 MG TAB PO SCH (08:31)
[2022-07-11 08:43] VITALS: BP 111/54; TEMP 97.8
[2022-07-11] MEDS ORDERED: POTASSIUM CL SA 10 MEQ TAB PO ONE (09:00)
--- NOTE | 2022-07-11 09:05 | P.DS ---
Admission Date: 07/07/22 Discharge Date: 07/11/22 Disposition: ROUTINE DISCHARGE Discharge Condition: FAIR Reason for Admission: CVA, chest pain Brief History of Present Illness: 41yo F, PMH: CVA/TIA, DVT on Coumadin, PTSD, migraine who presented to the ED due to 1 day of shortness of breath, associated with chest pressure, and headache. Symptoms began approximately at 8 AM, within 1 hour of waking. She was not doing any strenuous physical activity at that time, only making coffee. Upon initial evaluation in the ED, she was noted to have left sided facial droop, left-sided weakness (upper and lower extremity). Code stroke was initiated, patient underwent CT head which was negative for any acute findings. NIH stroke scale of 4. Neurology was consulted, and recommended TNKase. The ED physician and neurology had a discussion regarding TNKase given that the patient is on Coumadin for DVT. Currently her INR is subtherapeutic at 1.68. Given the acute onset of her symptoms, concern for CVA, neurology recommended TNKase. At the time of my exam, patient states she has had some slight improvement of slurred speech, vision, and weakness. No complete resolution of the symptoms yet. She has also had significant improvement in her shortness of breath. Initially felt as though she could not take a deep breath, and at times too short of breath to complete sentences. In the ED, initial blood work was rather unremarkable, CT head negative, patient received TNKase. She was admitted for further work-up and evaluation of her symptoms, close monitoring after TNKase. 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 Patient with a history of hypercoagulability on chronic Coumadin therapy. Status post TNKase in the ED. deficits with slight improvement each day, but not resolved She was placed on Coumadin Seen by neurology. Suspect a history of antiphospholipid syndrome. Neurology recommending INR 2.5-3.5. CT head - repeat 24hrs after tnkase, no acute process Coumadin restarted and bridged with Lovenox. Her home Coumadin regimen: 1mg daily, except Sun/ when she takes 2mg 1mg given 07/08, 2mg 07/09; 1mg 07/10. INR is 2.0 today. Patient discharged with Coumadin 2 mg to keep INR 2.5-3.5. She is informed to follow-up with her PCP at the [facility] for INR check within 2 days for Coumadin dose adjustment. Cerebellar stroke would explain left eye symptoms, ataxia, headache Upon further discussion with neurology, general consensus was that patient may derive more benefit with aspirin and Coumadin than only Coumadin. Patient reported family history of aspirin allergy. She has no known aspirin allergy and at this time the benefit of aspirin appear to outweighs the risk. Patient seen by PT and OT. Patient noted to be ambulating independently. She had no swallow problems. Chest pain, shortness of breath chest wall tenderness, possibly costochondritis Quick improvement/resolution of her symptoms (pain/shortness of breath) when she sits up/forward, findings typically seen with pericarditis trop negative x3 CRP <2.9 cardiology consulted and patient's started on colchicine 07/08. echo: Unremarkable, no pericardial effusion and negative bubble study. Currently denies any chest pain. Patient prescribed colchicine for suspected acute pericarditis. She is informed to discontinue the colchicine once her chest pain resolved as it is unc lear if her chest pain is related to acute pericarditis.. Vital Signs/Physical Exam: Temp Pulse Resp BP Pulse Ox 97.8 F 53 20 111/54 L 98 07/11/22 08:00 07/11/22 08:00 07/11/22 08:00 07/11/22 08:00 07/11/22 08:00 General: Alert, In no apparent distress, Oriented x3 HEENT: Mucous membr. moist/pink Neck: Supple, JVD not distended Respiratory: Clear to auscultation bilaterally, Normal air movement Cardiovascular: No edema, Regular rate/rhythm, Normal S1 S2 Gastrointestinal: Normal bowel sounds, Soft and benign, Non-distended, No tenderness Musculoskeletal: No swelling, No tenderness Integumentary: No rashes, No cyanosis Neurological: Normal speech, Normal strength at 5/5 x4 extr ( ), Cranial nerves 3-12 intact Laboratory Data at Discharge: WBC 8.80 K/uL (4.3-10.9) 07/10/22 06:00 Hgb 10.5 g/dL (12.0-15.0) L 07/10/22 06:00 Hct 32.2 % (36.0-45.0) L 07/10/22 06:00 Plt Count 314 K/uL (152-406) 07/10/22 06:00 PT 22.8 SECONDS (9.5-12.5) H 07/11/22 02:52 INR 2.07 07/11/22 02:52 Sodium 139 mmol/L (136-145) 07/11/22 02:52 Potassium 3.7 mmol/L (3.5-5.1) 07/11/22 02:52 BUN 10 mg/dL (7-18) 07/11/22 02:52 Creatinine 0.73 mg/dL (0.55-1.02) 07/11/22 02:52 Glucose 98 mg/dL (74-106) 07/11/22 02:52 Phosphorus 2.7 mg/dL (2.5-4.9) 07/09/22 06:01 Magnesium 2.3 mg/dL (1.6-2.4) 07/08/22 06:24 Total Bilirubin 0.2 mg/dL (0.2-1.0) 07/08/22 06:24 AST 10 U/L (15-37) L 07/08/22 06:24 ALT 18 U/L (13-56) 07/08/22 06:24 Alkaline Phosphatase 51 U/L (45-117) 07/08/22 06:24 Triglycerides 65 mg/dL (<150) 07/08/22 06:24 Cholesterol 155 mg/dL (<200) 07/08/22 06:24 HDL Cholesterol 44 mg/dL (40-60) 07/08/22 06:24 Cholesterol/HDL Ratio 3.52 07/08/22 06:24 Home Medications: Cetirizine HCl [Zyrtec] 10 mg PO PRN PRN 07/07/22 Aspirin [Aspirin EC] 81 mg PO DAILY #30 tab 07/11/22 Atorvastatin Calcium [Lipitor] 40 mg PO BEDTIME #30 tab 07/11/22 Colchicine [Colcrys *] 0.6 mg PO DAILY #30 tab 07/11/22 Warfarin Sodium [Coumadin*] 2 mg PO DAILY 5 PM #30 tab 07/11/22 New Medications: Aspirin [Aspirin EC] 81 mg PO DAILY #30 tab Colchicine [Colcrys *] 0.6 mg PO DAILY #30 tab Warfarin Sodium [Coumadin*] 2 mg PO DAILY 5 PM #30 tab Atorvastatin Calcium [Lipitor] 40 mg PO BEDTIME #30 tab Physician Discharge Instructions: Please follow up with your PCP at [facility] to check your INR within 2 days for coumadin dose adjustment. Followup: NONE,NONE [Primary Care Provider] - Guevara Armendariz MD [ASSOCIATE-ACTIVE - CAN ADMIT] - 1-2 Weeks Time spent managing pt's care (in minutes): 33
== END 2022-07-11 10:29 | disposition home or self-care (01) | DRG 62 ==
LOC: ER 10:17 → ERHOLD 16:40 → 2ND 07-08 15:45
PROVIDERS: ADMIT Hospitalist; ATTEND Internal Medicine
DX: I63.9 Cerebral infarction, unspecified (principal); G81.94 Hemiplegia, unspecified affecting left nondominant side; F43.10 Post-traumatic stress disorder, unspecified; F41.9 Anxiety disorder, unspecified; G43.909 Migraine, unspecified, not intractable, without status migrainosus; R29.704 NIHSS score 4; R47.81 Slurred speech; R29.810 Facial weakness; R20.0 Anesthesia of skin; R06.02 Shortness of breath; Z88.1 Allergy status to other antibiotic agents; Z88.0 Allergy status to penicillin; Z79.01 Long term (current) use of anticoagulants; Z98.51 Tubal ligation status; Z79.82 Long term (current) use of aspirin; Z87.891 Personal history of nicotine dependence; Z86.718 Personal history of other venous thrombosis and embolism; Z79.899 Other long term (current) drug therapy; Z89.029 Acquired absence of unspecified finger(s); Z20.822 Contact with and (suspected) exposure to COVID-19
CPT/HCPCS: 36415; 70450; 70496; 70498; 70551; 71045; 80048; 80053; 80061; 82947; 83735; 83880; 84100; 84436; 84443; 84484; 85025; 85027; 85379; 85610; 86140; 87811; 92523; 92610; 92977; 93005; 93306; 94760; 96374; 96375; 97116; 97161; 99285; J1650; J3101; J7030; Q9967

== ENCOUNTER 2024-01-11 16:52 | Emergency (ER) | payer OTHER ==
--- NOTE | 2024-01-11 17:15 | EDPHYS ---
Physician Documentation [facility] Name: Estefania Brooke Age: 43 yrs Sex: Female : 1980 Arrival Date: 01/11/2024 Time: 16:52 Bed IW4 Private MD: ED Physician Ian Tee HPI: 01/10 17:20 This 43 yrs old Female presents to ER via Ambulatory with complaints of sb4 Allergic Reaction. 17:20 The patient presents with itching, localized swelling, redness of skin. Onset: The sb4 symptoms/episode began/occurred this morning. Associated signs and symptoms: The patient has no apparent associated signs or symptoms. Possible causes: eyelash glue. At home the patient or guardian has treated the symptoms with Benadryl. Severity of symptoms: At their worst the symptoms were very mild. The patient has experienced similar episodes in the past, a few times, but today's symptoms are not as bad as this previous episode. Historical: - Allergies: 17:07 Ciprofloxacin; ld1 17:07 PENICILLINS; ld1 - PMHx: 17:07 Cerebrovascular accident; Migraines; PTSD; ld1 - Immunization history:: Adult Immunizations up to date. - Infectious Disease History:: Denies. - Social history:: Smoking status: Patient denies any tobacco usage or history of. ROS: 17:20 Constitutional: Negative for fever, chills, and weight loss, sb4 17:20 Eyes: Positive for itching, redness, swelling, 17:20 All other systems are negative, Exam: 17:20 Constitutional: This is a well developed, well nourished patient who is awake, alert, sb4 and in no acute distress. Head/Face: Normocephalic, atraumatic. 17:23 ENT: Mucous membranes moist. sb4 17:23 Eyes: Periorbital structures: erythema, that is mild, bilaterally, Pupils: equal, round, and reactive to light and accomodation, Extraocular movements: intact throughout, Conjunctiva: normal, Lids and lashes: edema, bilaterally, erythema, seen bilaterally, 17:23 ENT: Posterior pharynx: Airway: patent, Tonsils: are normal in appearance, Vital Signs: 17:05 BP 152 / 94; Pulse 84; Resp 18; Temp 97.2(TE); Pulse Ox 100% on R/A; Weight 68.04 kg; ld1 Height 5 ft. 3 in. ; Pain 0/10; 17:05 Body Mass Index 26.57 (68.04 kg, 160.02 cm) ld1 17:05 Pain Scale: Adult ld1 MDM: 16:59 Patient medically screened. sb4 17:24 Data reviewed: vital signs, nurses notes, and as a result, I will discharge patient. sb4 Counseling: I had a detailed discussion with the patient and/or guardian regarding the historical points, exam findings, and any diagnostic results supporting the discharge/admit diagnosis, to return to the emergency department if symptoms worsen or persist or if there are any questions or concerns that arise at home. Administered Medications: No medications were administered Disposition: 17:21 I was immediately available on-site in the Emergency Department for consultation in the ms3 care of the patient. 17:53 Chart complete. ms3 17:55 Co-signature as Attending Physician, Ian Tee DO. ms3 Disposition Summary: 01/11/24 17:14 Discharge Ordered Notes: Location: Home sb4 Problem: new sb4 Symptoms: are unchanged sb4 Condition: Stable sb4 Diagnosis - Allergic contact dermatitis due to cosmetics sb4 Followup: sb4 - With: Emergency Department - When: As needed - Reason: Trouble breathing, Worsening of condition Discharge Instructions: - Discharge Summary Sheet sb4 - Contact Dermatitis, [id number] sb4 Forms: - Patient Portal Instructions sb4 - Leadership Thank You Letter sb4 Prescriptions: - epinephrine 0.15 mg/0.3 mL Injection Auto-Injector - administer 0.3 milliliter INTRAMUSCULAR route every 5 to 15 minutes as needed sb4 for anaphylaxis; not to exceed 6 doses per episode; 3 unit; Refills: 0, Product Selection Permitted - Prednisone 20 mg Oral Tablet - take 1 tablet ORAL route once daily for 5 days; 5 tablet; Refills: 0, Product sb4 Selection Permitted Signatures: Ian Tee DO DO ms3 Kaylin Tee RN RN ld1 Iva Salinas, DONNA THOMPSON sb4
--- NOTE | 2024-01-11 17:15 | ER ---
Nurse's Notes [facility] Name: Estefania Brooke Age: 43 yrs Sex: Female : 1980 Arrival Date: 01/11/2024 Time: 16:52 Bed IW4 Private MD: Diagnosis: Allergic contact dermatitis due to cosmetics Presentation: 01/10 17:05 Chief complaint: Patient states: Pt reports waking up with eyes swollen shut - got new ld1 set of lashes yesterday. Pt reports swelling to face, upper lip and eyes. Coronavirus screen: At this time, the client does not indicate any symptoms associated with coronavirus-19. Ebola Screen: No symptoms or risks identified at this time. Onset: The symptoms/episode began/occurred gradually. Anaphylaxis evaluation, no signs or symptoms of anaphylaxis were noted. Initial Sepsis Screen: Does the patient meet any 2 criteria? No. Patient's initial sepsis screen is negative. Does the patient have a suspected source of infection? No. Patient's initial sepsis screen is negative. Risk Assessment: Do you want to hurt yourself or someone else? Patient reports no desire to harm self or others. Onset of symptoms was January 11, 2024. 17:05 Method Of Arrival: Ambulatory ld1 17:05 Acuity: CARYN 3 ld1 Triage Assessment: 17:07 General: Appears in no apparent distress. comfortable, Behavior is calm, cooperative, ld1 appropriate for age. Pain: Denies pain. EENT: No signs and/or symptoms were reported regarding the EENT system. swelling to NOLVIA eyes. Neuro: Level of Consciousness is awake, alert, obeys commands, Oriented to person, place, time, situation, Appropriate for age. Cardiovascular: Capillary refill < 3 seconds Patient's skin is warm and dry. Respiratory: Airway is patent Respiratory effort is even, unlabored, Denies shortness of breath at rest, on exertion. GI: Abdomen is round non-distended. : No signs and/or symptoms were reported regarding the genitourinary system. Derm: No signs and/or symptoms reported regarding the dermatologic system. Musculoskeletal: No signs and/or symptoms reported regarding the musculoskeletal system. Historical: - Allergies: 17:07 Ciprofloxacin; ld1 17:07 PENICILLINS; ld1 - PMHx: 17:07 Cerebrovascular accident; Migraines; PTSD; ld1 - Immunization history:: Adult Immunizations up to date. - Infectious Disease History:: Denies. - Social history:: Smoking status: Patient denies any tobacco usage or history of. Screenin:23 [facility] ED Fall Risk Assessment (Adult) History of falling in the last 3 months, ld1 including since admission No falls in past 3 months (0 pts) Confusion or Disorientation No (0 pts) Intoxicated or Sedated No (0 pts) Impaired Gait No (0 pts) Mobility Assist Device Used No (0 pt) Altered Elimination No (0 pt) Score/Fall Risk Level 0 - 2 = Low Risk Oriented to surroundings, Maintained a safe environment, Educated pt \T\ family on fall prevention, incl call for assistance when getting out of bed, Assessed \T\ reinforced patient's understanding of fall precautions, Provided non-skid footwear, Hourly rounding (assess needs \T\ fall precautionary measures) done, Used ambulatory aids as needed (educated on \T\ assisted with), Used gait belt as appropriate. Abuse screen: Denies threats or abuse. Denies injuries from another. Nutritional screening: No deficits noted. Tuberculosis screening: No symptoms or risk factors identified. Assessment: 17:23 Reassessment: See triage assessment. Respiratory: Airway is patent Respiratory effort ld1 is even, unlabored, Breath sounds are clear bilaterally. Vital Signs: 17:05 BP 152 / 94; Pulse 84; Resp 18; Temp 97.2(TE); Pulse Ox 100% on R/A; Weight 68.04 kg; ld1 Height 5 ft. 3 in. ; Pain 0/10; 17:05 Body Mass Index 26.57 (68.04 kg, 160.02 cm) ld1 17:05 Pain Scale: Adult ld1 ED Course: 16:56 Patient arrived in ED. sj2 16:58 Iva Salinas PA-C is PHCP. sb4 16:58 Ian Tee DO is Attending Physician. sb4 17:07 Triage completed. ld1 17:07 Arm band placed on right wrist. ld1 17:23 Patient has correct armband on for positive identification. Placed in gown. Bed in low ld1 position. Call light in reach. Side rails up X2. Pulse ox on. NIBP on. Door closed. Noise minimized. Warm blanket given. 17:23 No provider procedures requiring assistance completed. Patient did not have IV access ld1 during this emergency room visit. Administered Medications: No medications were administered Medication: 17:23 VIS not applicable for this client. ld1 Outcome: 17:14 Discharge ordered by . sb4 17:23 Discharged to home ambulatory, ld1 17:23 Condition: stable 17:23 Discharge instructions given to patient, Instructed on discharge instructions, follow up and referral plans. Demonstrated understanding of instructions, follow-up care, medications, Prescriptions given X 2, 17:24 Patient left the ED. ld1 Signatures: Kaylin Tee RN RN ld1 Iva Salinas, PA-C PA-C sb4 Dayanara Rojas2
[2024-01-11 17:44] VITALS: BP 152/94; TEMP 97.2; O2SAT 100
== END 2024-01-11 17:24 | disposition home or self-care (01) ==
LOC: ER 16:52
DX: L23.2 Allergic contact dermatitis due to cosmetics (principal)
CPT/HCPCS: 99283